=== PATIENT | female | born 1950 | race Caucasian/White ===

== ENCOUNTER 2019-06-10 10:48 | Outpatient (CLI) | payer MEDICARE, SELFPAY ==
--- NOTE | 2019-06-10 | EST_ITS ---
Patient Info Name: Wendi Goncalves Age: 69 years : 1950 Gender: Female Ht: 60 in Wt: 187 lbs BSA: 1.94 m2 Exam Date: 06/10/2019 11:39 AM Exam Location: [facility] Stress Patient Status: Outpatient Admit Date: 06/10/2019 Staff Ordering Physician: DannyTracey MD Attending Provider: DannyTracey MD Exercise Technologist: Darren Park, RDCS, RT Nurse: Eun Rodgers, ANP, ACNP-BC Exam Type: CA stress test treadmill Study Info A treadmill exercise stress test was performed. Summary 1. Reasonable exercise tolerance for age. 2. No typical angina but felt a midsternal rock pressing on her chest with breathing during stress test. 3. Normal ST segment response to stress. Protocol: [place] Stress ECG Details Stage: REST Duration (min): 4 min : 49 sec Speed (mph): 0.0 Grade (%): 0 HR (bpm): 81 SBP (mmHg): 134 DBP (mmHg): 85 METS: --- Stage: REST Duration (min): 18 min : 57 sec Speed (mph): 0.0 Grade (%): 0 HR (bpm): 80 SBP (mmHg): 134 DBP (mmHg): 85 METS: --- Stage: STAGE 1 Duration (min): 1 min : 0 sec Speed (mph): 1.7 Grade (%): 10 HR (bpm): 110 SBP (mmHg): 134 DBP (mmHg): 85 METS: --- Stage: STAGE 1 Duration (min): 2 min : 0 sec Speed (mph): 1.7 Grade (%): 10 HR (bpm): 119 SBP (mmHg): 134 DBP (mmHg): 85 METS: --- Stage: STAGE 1 Duration (min): 3 min : 0 sec Speed (mph): 1.7 Grade (%): 10 HR (bpm): 122 SBP (mmHg): 134 DBP (mmHg): 85 METS: --- Stage: STAGE 2 Duration (min): 1 min : 0 sec Speed (mph): 2.5 Grade (%): 12 HR (bpm): 131 SBP (mmHg): 134 DBP (mmHg): 85 METS: --- Stage: STAGE 2 Duration (min): 2 min : 0 sec Speed (mph): 2.5 Grade (%): 12 HR (bpm): 138 SBP (mmHg): 134 DBP (mmHg): 85 METS: --- Stage: STAGE 2 Duration (min): 2 min : 21 sec Speed (mph): 2.5 Grade (%): 12 HR (bpm): 139 SBP (mmHg): 134 DBP (mmHg): 85 METS: --- Stage: RECOVERY Duration (min): 0 min : 38 sec Speed (mph): 0.0 Grade (%): 0 HR (bpm): 134 SBP (mmHg): 134 DBP (mmHg): 85 METS: --- Stage: RECOVERY Duration (min): 1 min : 38 sec Speed (mph): 0.0 Grade (%): 0 HR (bpm): 113 SBP (mmHg): 134 DBP (mmHg): 85 METS: --- Stage: RECOVERY Duration (min): 2 min : 38 sec Speed (mph): 0.0 Grade (%): 0 HR (bpm): 99 SBP (mmHg): 171 DBP (mmHg): 86 METS: --- Stage: RECOVERY Duration (min): 3 min : 38 sec Speed (mph): 0.0 Grade (%): 0 HR (bpm): 103 SBP (mmHg): 167 DBP (mmHg): 83 METS: --- Stage: RECOVERY Duration (min): 4 min : 38 sec Speed (mph): 0.0 Grade (%): 0 HR (bpm): 96 SBP (mmHg): 167 DBP (mmHg): 83 METS: --- Stage: RECOVERY Duration (min): 5
== END 2019-06-10 10:49 | disposition home or self-care (01) ==
PROVIDERS: PCP Internal Medicine; Visit Provider Internal Medicine
DX: R07.9 Chest pain, unspecified (principal)
CPT/HCPCS: 93017

== ENCOUNTER 2020-11-23 01:08 | Day surgery (SDC) | payer MEDICARE, SELFPAY ==
[2020-11-12 15:35] VITALS: BMI 35.6
--- NOTE | 2020-11-22 13:29 | WPDANESEPPF ---
Anes - Initial Pre Proc Eval Procedure: Operation Date: 11/23/20 11:30 Proposed Procedures p Screening Colonoscopy - Cayetano Carlisle MD Date/Time: 11/22/20 13:29 Surgeon: Cayetano Carlisle MD Pre Op Diagnosis: family hx of colon ca Patient Data Age: 70 Gender: F Height: 1.52 m Weight: 82.7 kg Allergies Allergy/AdvReac Type Severity Reaction Status Date / Time nizatidine Allergy Intermediate hives Verified 11/23/20 10:41 ranitidine [From Zantac] Allergy Hives Verified 11/23/20 10:41 Home Medications Medication Instructions Recorded Confirmed Type isosorbide mononitrate 30 mg 30 mg PO DAILY 10/13/20 11/23/20 History tablet,extended release 24 hr lisinopril 20 1 tablet PO DAILY 10/13/20 11/23/20 History mg-hydrochlorothiazide 25 mg tablet meloxicam 15 mg tablet 15 mg PO DAILY 10/13/20 11/23/20 History metoprolol succinate 25 mg 25 mg PO DAILY 10/13/20 11/23/20 History tablet,extended release 24 hr rosuvastatin 5 mg tablet 5 mg PO DAILY 10/13/20 11/23/20 History Patient hx anesthesia problems: none Family hx anesthesia problems: none PMFSH Past Medical History Medical History (Updated 11/23/20 @ 11:27 by Jean Parker DO) Constipation Coronary artery disease 50-60% blockage, no stents GERD (gastroesophageal reflux disease) Hepatitis Hyperlipidemia Hypertension MING (obstructive sleep apnea) Osteoporosis Surgical History Surgical History (Updated 11/22/20 @ 13:29 by Jean Parker DO) History of hysterectomy Family History Family History (Updated 10/13/20 @ 15:16 by Gay Palmer CMA) Mother Carcinoma of colon Social History Social History (Updated 10/13/20 @ 15:16 by Gay Palmer CMA) Smoking status: Never smoker Alcohol intake: never Substance use: never Substance use type: does not use Living arrangements: with family Gender identity (if verbalized by the patient): Female Anes - Eval Final PreProcedure Day of Procedure 11/22/20 13:29 Patient weight: obese Heart: regular rate and rhythm Lungs: clear to auscultation and normal air movement Airway: Mallampati scale class III Neurological: alert and oriented Last oral intake: >/= 8 hours ASA classification: III Emergent: no Anesthetic plan: proceed Anesthesia type and monitoring: general GIVS and standard monitoring Informed Consent: The patient's anesthetic plan and its attendant risks and benefits were discussed with the patient/family/POA. Questions were solicited and answers provided to the satisfaction of the patient/family/POA.
[2020-11-23] MEDS: LACTATED RINGERS 1,000 ML 150 ML IV CONT (10:53)
[2020-11-23 10:54] VITALS: BP 139/62; PULSE 75; RESP 21; TEMP 35.7; O2SAT 97
--- NOTE | 2020-11-23 11:14 | WPDGICN ---
Assessment and Plan Assessment and plan (1) Family history of colon cancer in mother: Code(s): Z80.0 - Family history of malignant neoplasm of digestive organs Status: Acute Assessment and Plan: Patient's family history is significant her mother had colon cancer. Plan is for screening colonoscopy at this time. High-fiber diet is advised because of irregular bowel movements and a history of bright red blood per rectum on 1 occasion. Further recommendations will be given after endoscopy. GI Consult Note Consult date/time: 11/23/20 11:14 HPI: Wendi Goncalves is a 70 year old female Presents for screening colonoscopy. Family history is significant her mother had colon cancer. Patient reports her weight appetite bowel movements are normal. She did briefly a bright red blood per rectum after a hard stool. She denies any abdominal pain. Her bowel habits returned to normal. Plan to proceed with screening colonoscopy at this time. Review of Systems Review of Systems: All systems reviewed & are unremarkable except as noted in HPI and below PMFSH Past Medical History Medical History (Updated 11/22/20 @ 13:29 by Jean Parker DO) Constipation Coronary artery disease GERD (gastroesophageal reflux disease) Hepatitis Hyperlipidemia Hypertension MING (obstructive sleep apnea) Osteoporosis Surgical History Surgical History (Updated 11/22/20 @ 13:29 by Jean Parker DO) History of hysterectomy Family History Family History (Updated 10/13/20 @ 15:16 by Gay Palmer CMA) Mother Carcinoma of colon Social History Social History (Updated 10/13/20 @ 15:16 by Gay Palmer CMA) Smoking status: Never smoker Alcohol intake: never Substance use: never Substance use type: does not use Living arrangements: with family Gender identity (if verbalized by the patient): Female Meds Home Medications and Allergies Home Medications Medication Instructions Recorded Confirmed Type isosorbide mononitrate 30 mg 30 mg PO DAILY 10/13/20 11/23/20 History tablet,extended release 24 hr lisinopril 20 1 tablet PO DAILY 10/13/20 11/23/20 History mg-hydrochlorothiazide 25 mg tablet meloxicam 15 mg tablet 15 mg PO DAILY 10/13/20 11/23/20 History metoprolol succinate 25 mg 25 mg PO DAILY 10/13/20 11/23/20 History tablet,extended release 24 hr rosuvastatin 5 mg tablet 5 mg PO DAILY 10/13/20 11/23/20 History Allergies Allergy/AdvReac Type Severity Reaction Status Date / Time nizatidine Allergy Intermediate hives Verified 11/23/20 10:41 ranitidine [From Zantac] Allergy Hives Verified 11/23/20 10:41 Vital Signs Vital Signs - 24 hr 11/23/20 10:54 Temperature 96.3 F L Pulse Rate 75 Respiratory Rate 21 H Blood Pressure 139/62 Pulse Oximetry 97 Exam Narrative: Physical exam reveals patient to be alert. Vital signs are stable. Lungs are clear. Heart without murmur. bowel signs are present soft nontender with no hepatosplenomegaly. Digital external rectal exam is normal.
[2020-11-23 12:15] VITALS: BP 103/58; PULSE 76; RESP 23; O2SAT 95
[2020-11-23 12:25] VITALS: BP 113/60; PULSE 77; RESP 25; O2SAT 95
[2020-11-23 12:35] VITALS: BP 135/58; PULSE 71; RESP 25; O2SAT 95
== END 2020-11-23 12:55 | disposition home or self-care (01) ==
PROVIDERS: PCP Internal Medicine; Visit Provider Internal Medicine Gastroenterology
PROC: 0DJD8ZZ Inspection of Lower Intestinal Tract, Via Natural or Artificial Opening Endoscopic (ICD-10-PCS; CPT 45378; principal; 2020-11-23 11:30)
DX: K62.5 Hemorrhage of anus and rectum (principal); Z80.0 Family history of malignant neoplasm of digestive organs; K57.30 Diverticulosis of large intestine without perforation or abscess without bleeding; K64.8 Other hemorrhoids; I25.10 Atherosclerotic heart disease of native coronary artery without angina pectoris; K21.9 Gastro-esophageal reflux disease without esophagitis; K75.9 Inflammatory liver disease, unspecified; I10 Essential (primary) hypertension; M81.0 Age-related osteoporosis without current pathological fracture; G47.33 Obstructive sleep apnea (adult) (pediatric); E66.9 Obesity, unspecified; Z68.35 Body mass index [BMI] 35.0-35.9, adult
CPT/HCPCS: 45378; J2001; J2704; J7120

== ENCOUNTER 2022-08-04 13:25 | Outpatient (CLI) | payer MEDICARE, SELFPAY ==
--- NOTE | ~2022-08-04 | XR_ITS ---
EXAM: XR elbow RT min 3V DATE: 08/04/2022 13:45 HISTORY: INJURY OF RIGHT ELBOW . COMPARISON: None available. FINDINGS: Normal mineralization. No fracture or dislocation. No lytic or blastic lesion. Mild degene rative change in the elbow joint. Enthesopathy overlying the lateral epicondyle. No erosion or perios teal change. Soft tissues within normal limits. IMPRESSION: Lateral epicondylar enthesopathy, correlate for clinical findings of bilateral epicondyli tis. Reviewed, dictated and finalized at location K. IMPRESSION: Lateral epicondylar enthesopathy, correlate for clinical findings o f bilateral epicondylitis.
== END 2022-08-04 13:26 | disposition home or self-care (01) ==
PROVIDERS: PCP Internal Medicine; Visit Provider Internal Medicine
DX: M77.11 Lateral epicondylitis, right elbow (principal)
CPT/HCPCS: 73080

== ENCOUNTER 2024-02-11 13:07 | Outpatient (CLI) | payer MEDICARE, SELFPAY ==
--- NOTE | ~2024-02-11 | XR_ITS ---
XR hip RT min 2V Ordering provider: Tracey Delgado MD History: . PAIN IN R HIP . Comparison: None. FINDINGS: BONES: No acute fracture or dislocation. HIP JOINT SPACES: Mild osteoarthritic changes. PUBIC SYMPHYSIS: Normal. SOFT TISSUES: Normal. IMPRESSION: No acute osseous abnormality pelvis and right hip. Reviewed, dictated and finalized at location A. [facility] [employer]
== END 2024-02-11 13:08 | disposition home or self-care (01) ==
PROVIDERS: PCP Internal Medicine; Visit Provider Internal Medicine
DX: M25.551 Pain in right hip (principal)
CPT/HCPCS: 73502

== ENCOUNTER 2024-06-09 07:56 | Emergency (ER) | payer MEDICARE, SELFPAY ==
[2024-06-09] VITALS (26 sets, daily range): BP systolic 101–181; BP diastolic 34–93; PULSE 65–78; RESP 16–36; TEMP 36.4–36.7; O2SAT 90–97
--- NOTE | ~2024-06-09 | XR_ITS ---
EXAMINATION: XR chest 2V DATE: 06/09/2024 08:15 INDICATION: Chest pain. TECHNIQUE: Frontal and lateral views of the chest were obtained. COMPARISON: Chest single view 10/06/2011 FINDINGS: There is mild atelectasis in right mid and lower lung zones and left lower lung zone. No pl eural effusion or pneumothorax. The heart size is normal. IMPRESSION: 1. Mild atelectasis in right mid and lower lung zones and left lower lung zone. Reviewed, dictated and finalized at location B.
--- NOTE | 2024-06-09 07:57 | ECG_ITS ---
Test Date: 2024-06-09 08:01:35 Measurements Intervals [place] Rate: 78 P: 23 ME: 153 QRS: -14 QRSD: 86 T: 60 QT: 359 QTc: 410 Interpretive Statements SINUS RHYTHM NONSPECIFIC ST & T-WAVE ABNORMALITY No previous ECG available for comparison Electronically Signed On 06-09-2024 11:40:57 CDT by Deny Pedersen M.D.
--- OUTSIDE RECORDS SUMMARY | 2024-06-09 08:03 | XMS_ITS | Clinical Summary ---
Author Organization [facility] al Address [address] [place] [address] Care Team Providers Care Operations Team Leader Name Role Phone Gareth Diaz MD Unavailable [phone] Tracey Delgado MD Primary Care Provider [phone] Allergies Active Allergy Reactions Criticality Noted Date Comments Nizatidine Unknown 10/30/2018 Ranitidine Hives Medium 06/24/2019 Medications meloxicam (MOBIC) 15 mg tablet Take 1 tablet (15 mg total) by mouth daily 3 9 Active omega 7-qav-fhw-fish oil 300-1,000 mg capsule Active aspirin 81 mg enteric coated tablet Take 1 tablet (81 mg total) by mouth daily Active cholecalciferol (VITAMIN D-3) 5,000 unit capsule Take 1 capsule (5,000 Units total) by mouth 3 (three) times a week Active metoprolol XL (TOPROL-XL) 25 mg extended release tablet Activ e coenzyme Q10 200 mg capsule Activ e sertraline (ZOLOFT) 25 mg tablet Take 2 tablets (50 mg total) by mouth daily 3 Active rosuvastatin (CRESTOR) 5 mg tablet Take 1 tablet (5 mg total) by mouth daily 100 tablet 2 3 Active B6/folic/B12/co ffee/phosphatid (NEURIVA PLUS BRAIN PERFORMANCE ORAL) 4 Active isosorbide mononitrate ER (IMDUR) 30 mg 24 hr tablet TAKE 1 TABLET BY MOUTH DAILY 100 tablet 2 5 Active rOPINIRole (REQUIP) 0.5 mg tabletIndicatio ns:Treatment-em ergent central sleep apnea,PLMD (periodic limb movement disorder) TAKE 1 TABLET BY MOUTH EVERY NIGHT 100 tablet 2 5 Active rOPINIRole (REQUIP) 0.5 mg tabletIndicatio ns:Treatment-em ergent central sleep apnea,PLMD (periodic limb movement disorder) Take 1 tablet (0.5 mg total) by mouth nightly 90 tablet 3 4 025 Discontinued Active Problems Problem Noted Date Diagnosed Date Shortness of breath 04/09/2023 Lower extremity edema 09/29/2022 Essential hypertension, benign 10/06/2021 Dyspnea on exertion 10/06/2021 Chest pressure 10/06/2021 Mixed hyperlipidemia 01/21/2021 Treatment-emergent central sleep apnea Assessment & Plan (11/01/2023 1:54 PM CDT): Due to continued symptoms, the patient will continue auto SV BiPAP therapy. Ordered masks. DME [employer] Assessment & Plan (10/30/2022 3:09 PM CDT): Patient continue to wear her auto SV BiPAP at her current settings. The patient's DME is [employer]. Assessment & Plan (10/04/2021 2:15 PM CDT): The patient continues to benefit from the auto SV BiPAP unit. Her DME supplier is [employer]. She will follow-up with me in 1 year. Assessment & Plan (06/09/2021 2:46 PM FIRE PREVENTION OFFICER): The patient states that she did not use the so clean machine. The patient was advised to inspect her auto SV BiPAP for any dark particles in her hose or water tank. If none is visualize the patient was advised to resume the use of her auto SV BiPAP. The patient was advised that the slurred speech and memory issues could be related to a TIA or stroke symptoms. The patient advised if these symptoms return that she needs to proceed to the emergency room immediately. The patient verbalized understanding. Assessment & Plan (06/08/2020 2:40 PM FIRE PREVENTION OFFICER): Due to the patient's elevated AHI, snoring, and daytime fatigue, the auto SV BiPAP settings will be changed with a max pressure 25 a minimum EPAP of 15, max EPAP of 21, minimum pressure support 0, max pressure support of 10 cm water pressure. The breath rate will remain on auto. The patient was provided an order for a new mask. The DME company is [employer]. The patient is benefitting from auto SV BiPAP therapy. PLMD (periodic limb movement disorder) Assessment & Plan (11/01/2023 1:53 PM CDT): Due to the symptoms, I have ordered Requip 0.5 mg nightly. Assessment & Plan (10/30/2022 3:09 PM CDT): The patient denies that her limbs are moving at night when she sleeps. Assessment & Plan (10/04/2021 2:16 PM CDT): She is not aware that her limbs are moving at night. Assessment & Plan (06/09/2021 2:46 PM FIRE PREVENTION OFFICER): Patient denies that her limbs are moving at night when she sleeps. Assessment & Plan (06/08/2020 2:41 PM FIRE PREVENTION OFFICER): The patient states her periodic limb movement disorder is currently asymptomatic. The patient was offered labs to evaluate iron and ferritin levels, the patient would like to wait until she starts having symptoms before obtaining lab work. Coronary artery disease invo lving [place] coronary artery of [place] heart without angina pectoris 07/11/2019 Essential hypertension 06/24/2019 Obesity (BMI 35.0-39.9 without comorbidity) 06/01 Abnormal EKG 06/24/2019 Abnormal stress test 06/24/2019 Resolved Problems Problem Noted Date Diagnosed Date Resolved Date Dyslipidemia 07/11/2019 01/21/2021 Snoring 06/24/2019 10/04/2021 Encounters Date Type Department Care Team Description 04/17/2024 Orders Only [facility] Medical [facility] Cardiology [address] [place] [address] Kathi Quijano MD 04/16/2024 2:00 PM FIRE PREVENTION OFFICER Office Visit [facility] Medical [facility] Cardiology [address] [place] [id number] Gareth Diaz MD Coronary artery disease involving [place] coronary artery of [place] heart without angina pectoris (Primary Dx); Essential hypertension; Mixed hyperlipidemia; Lower extremity edema; Shortness of breath 04/15/2024 10:48 AM FIRE PREVENTION OFFICER - 04/15/2024 11:59 PM FIRE PREVENTION OFFICER Hospital Encounter [facility] Breast Imaging [facility] [place] [address] Screening mammogram, encounter for Discharge Disposition: Discharge to home or self care from Last 3 Months Immunizations Immunization Administration Dates Next Due Influenza, Quadrivalent, Spl it, Preservative Free, Intramuscular 01/16/2019 Pneumococcal Polysaccharide PPV23 11/07/2014 Surgical History Surgery Date Site/Laterality Comments VT TOTAL ABDOMINAL HYSTERECT W/WO RMVL TUBE OVARY Hysterectomy - (Added by TW Conv) HYSTERECTOMY COLONOSCOPY 04/02/2015 - 04/01/2016 CARDIAC CATHETERIZATION CATARACT EXTRACTION left eye first Medical History Medical History Date Comments Personal history of other di seases of the circulatory system History of hypertension - (A dded by TW Conv) Disease of intestine Bowel troub le - (Added by TW Conv) Personal history of other di seases of the musculoskeletal system and connective tissue Personal history of arthriti s - (Added by TW Conv) Personal history of other sp ecified conditions History of jaundice - (Added by TW Conv) GERD (gastroesophageal reflux disease) Hepatitis 1961 IBS (irritable bowel syndrome) Diverticulitis Hypertension Hyperlipidemia Coronary artery disease Family History Medical History Relation Name Comments Breast cancer Maternal Grandmother Family history of malignant neoplasm of breast - (Added by TW Conv) Leukemia Maternal Grandmother Family history of leukemia - (Added by TW Conv) Colon cancer Mother Family history of malignant neoplasm of colon - (Added by TW Conv) Hypertension Mother Family history of hypertension - (Added by TW Conv) Relation Name Status Comments Maternal Grandmother Mother Social History Tobacco Use Types Packs/Day Years Used Date Smoking Tobacco: Never Smokeless Tobacco: Never Tobacco Cessation:Counseling Given: Not Answered Alcohol Use Standard Drinks/Week Comments Not Currently 0 (1 standard drink = 0.6 oz pur e alcohol) AUDIT-C Answer Date Recorded Q1: How often do you have a drink containing alc ohol? Never 06/09/2021 Average Number of Drinks Not on file 022 Q3: How often do you have si x or more drinks on one occasion? Never 06/09/2021 Comments No Sex and Gender Information Value Date Recorded Sex Assigned at Not on file Legal Sex Female 5:57 AM FIRE PREVENTION OFFICER Gender Identity Female 01/09/2020 9:13 PM CDT Sexual Orientation Not on file Obstetrics History Para Term AB IAB SAB Ectopic Multiple Livin g Live Births 2 2 2 Date Outcome GA Total Labor Labor/2nd/3rd Weight Sex Type Anes PTL Theodora A1 A5 Name Clin Term Term Last Filed Vital Signs Vital Sign Reading Time Taken Comments Blood Pressure 132/74 04/16/2024 2:51 PM FIRE PREVENTION OFFICER Pulse 68 04/16/2024 2:51 PM FIRE PREVENTION OFFICER Temperature 36.6 C (97.8 F) 11/01/2023 1:35 PM CDT Respiratory Rate 18 11/01/2023 1:35 PM CDT Oxygen Saturation 97% 11/01/2023 1:35 PM CDT Inhaled Oxygen Concentration - - Weight 84.8 kg (186 lb 14.4 oz) 04/16/2024 2:51 PM FIRE PREVENTION OFFICER Height 152.4 cm (5') 04/16/2024 2:51 PM FIRE PREVENTION OFFICER Body Mass Index 36.5 04/16/2024 2:51 PM FIRE PREVENTION OFFICER Plan of Treatment Health Maintenance Due Date Last Done Comments Colon Cancer Screening-Colonoscopy 1950 Depression Screening 1950 Fall Risk Assessment 1950 Hepatitis C Screening 1950 DTaP/Tdap/Td Vaccine (1 - Tdap) 1960 Hepatitis B Screening 1967 Zoster Vaccine (1 of 2) 1999 Well Visit 65+ 2014 Pneumococcal vaccine 65+ (2 of 2 - PCV) 11/08/2015 11/07/2014 Osteoporosis Screening-Bone Density Scan 03/22/2025 03/22/2023, 12/28/2020, 08/29/2013 Influenza Vaccine Completed 01/13/2024, , 01/08/2022, Additional history exists Breast Cancer Screening-Mammogram Discontinued 04/15/2024, 03/22/2023, 12/28/2020, Additional history exists Procedures Procedure Name Priority Date/Time Associated Diagnosis Comments SCREENING MAMMOGRAM BILATERAL W HOWARD Schedule Routine, Read Routine (OP Routine) 04/15/2024 11:03 AM FIRE PREVENTION OFFICER Screening mammogram, encounter for DEXA AXIAL SKELETON BONE DENSITY 1 OR MORE SITES Schedule Routine, Read Routine (OP Routine) 03/22/2023 1:32 PM FIRE PREVENTION OFFICER Asymptomatic menopausal state from Last 3 Months or Most Recently Relevant to Health Maintenance Results * Screening Mammogram Bilateral W Howard (04/15/2024 11:03 AM FIRE PREVENTION OFFICER) Anatomical Region Laterality Modality Breast Bilateral Mammography Impressions 04/15/2024 11:27 AM FIRE PREVENTION OFFICER BI-RADS ATLAS category (overall): 2 - Benign There is no mammographic evidence of malignancy. A 1 year screening mammogram is recommended. The patient has been or will be contacted. We recommend annual screening mammography for women at average risk of breast cancer beginning at age 40, based on guidelines of the [employer] (ACR Practice Parameter for the Performance of Screening and Diagnostic Mammography) and [employer]. For women with and elevated risk of breast cancer, please refer to the ACR Practice Parameter for specific screening recommendations. The patient will be entered into a reminder system with a target due date of 1 year for her next screening exam. Narrative 04/15/2024 11:27 AM FIRE PREVENTION OFFICER Screening Mammogram Bilateral W Howard: 04/15/24 The study was acquired using full field digital technology and interpreted from soft copy. 2D digital mammographic views, as well as 3D digital tomosynthesis were performed in the CC and MLO projections. This study was resulted using Computer-Aided Detection (CAD). CLINICAL: Screening mammogram, encounter for. No relevant medical history has been documented for this patient. History of breast cancer in Maternal Grandmother. COMPARISONS: 03/22/2023 Screening Mammogram Bilateral W Howard 12/28/2020 Screening Mammogram Bilateral W Howard 07/09/2017 Breast Imaging Screening Outside Reference BREAST TISSUE: There are scattered areas of fibroglandular density. FINDINGS: There are benign scattered calcifications in both breasts. There is no new suspicious finding in either breast on mammogram. 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 LEFT HIP: Total BMD is 0.893 g/cm2 T-score is -0.4 This is decrease in comparison to prior exam which is statistically significant. Femoral neck BMD is 0.687 g/cm2 T-score is -1.5 FRAX: 10 year risk for a major osteoporotic fracture is 9.6 %, 10 year risk for a hip fracture is 1.6 % IMPRESSION: Low Bone Mass. REFERENCE: Bone mineral density: Normal (T-score above or = -1.0) Low bone mass (T-score between -1.0 and -2.5) replaces the previously used term osteopenia Osteoporosis (T-score = or below -2.5) Medical evaluation for secondary causes of low bone mineral density may be appropriate. FRAX is a World Health Organization validated fracture risk assessment tool that calculates a person's 10 year probability of a major osteoporosis related fracture and hip fracture. According to the National Osteoporosis Foundation guidelines, postmenopausal women and men age 50 or older with low bone mass and a 10 year probability of a major osteoporosis related fracture = or greater than 20% or a 10 year probability of a hip fracture = or greater than 3% should be considered for treatment. For further information, including treatment recommendations, please refer to the 2019 ISCD Official Positions (http://www.iscd.org) and the NOF's Clinician's Guide to Prevention and Treatment of Osteoporosis (http://www.nof.org/professionals/clinical-guidelines) THIS IS AN ELECTRONICALLY VERIFIED FINAL REPORT 03/23/2023 6:16 PM - Electronically signed by Luis Fernando Maloney M.D. 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 LEFT HIP: Total BMD is 0.893 g/cm2 T-score is -0.4 This is decrease in comparison to prior exam which is statistically significant. Femoral neck BMD is 0.687 g/cm2 T-score is -1.5 FRAX: 10 year risk for a major osteoporotic fracture is 9.6 %, 10 year risk fora hip fracture is 1.6 % IMPRESSION: Low Bone Mass. REFERENCE: Bone mineral density: Normal (T-score above or = -1.0) Low bone mass (T-score between -1.0 and -2.5) replaces thepreviously used term osteopenia Osteoporosis (T-score = or below -2.5) Medical evaluation for secondary causes of low bone mineral density may be appropriate. FRAX is a World Health Organization validated fracture risk assessmenttool that calculates a person's 10 year probability of a major osteoporosisrelated fracture and hip fracture. According to the National OsteoporosisFoundation guidelines, postmenopausal women and men age 50 or older with low bonemass and a 10 year probability of a major osteoporosis related fracture = or greater than 20% or a 10 year probability of a hip fracture = or greaterthan 3% should be considered for treatment. For further information, including treatment recommendations, please referto the 2019 ISCD Official Positions (http://www.iscd.org) and the NOF's Clinician's Guide to Prevention and Treatment of Osteoporosis (http://www.nof.org/professionals/clinical-guidelines) THIS IS AN ELECTRONICALLY VERIFIED FINAL REPORT 03/23/2023 6:16 PM - Electronically signed by Luis Fernando Maloney M.D. MF: [email or web address] Report ID: [id number] Reading Location: [place] [address] Tracey Delgado MD IMG DXA PROCEDURES Final R esult from Last 3 Months or Most Recently Relevant to Health Maintenance Insurance [facility] MEDICARE MEDICARE SOLUTIONS Advance Directives For more information, please contact: [phone] * Full Code (Latest Code Status on File) Date Activated Date Inactivated Comments 11/05/2018 8:20 AM 11/05/2018 2:24 PM Care Teams Operations Team Leader Relationship Specialty Start Date End Date Tracey Delgado MD [address] [facility] [place] [address] PCP - General Internal Medicine 01/16/20 Gareth Diaz MD [address] [place] [address] Voice And Data Technician Cardiology 06/30/19
--- OUTSIDE RECORDS SUMMARY | 2024-06-09 08:03 | XMS_ITS | Clinical Summary ---
Author Organization [facility] Address [facility] [place] [address] Care Team Providers Care Certified Fire Investigator Name Role Phone Tracey Delgado MD Primary Care Provider [phone] Allergies Active Allergy Reactions Criticality Noted Date Comments Nizatidine Hives 01/17/2021 Ranitidine Hives 01/17/2021 Medications isosorbide mononitrate ER 30 MG 24 hr tablet Take 30 mg by mouth daily. Active meloxicam 15 MG tablet Take 15 mg by mouth daily. Active metoprolol succinate ER 25 MG 24 hr tablet Take 25 mg by mouth daily. Active rosuvastatin 5 MG tablet Take 5 mg by mouth nightly at bedtime. Active aspirin EC (ASPIRIN EC) 81 MG tablet Take 81 mg by mouth daily. Active lisinopril-hydro CHLOROthiazide 20-12.5 MG tablet Take 1 tablet by mouth daily. Takes lisinopril 20/ HCTZ 25mg tablet Active Social History Tobacco Use Types Packs/Day Years Used Date Smoking Tobacco: Former Smokeless Tobacco: Never Alcohol Use Standard Drinks/Week Comments Never 0 (1 standard drink = 0.6 oz pur e alcohol) Comments No Sex and Gender Information Value Date Recorded Sex Assigned at Not on file Legal Sex Female 1:37 AM CDT Gender Identity Not on file Sexual Orientation Not on file Last Filed Vital Signs Vital Sign Reading Time Taken Comments Blood Pressure 125/65 01/24/2021 10:57 AM CDT Pulse 72 01/24/2021 10:57 AM CDT Temperature 36.2 C (97.1 F) 01/24/2021 9:47 AM CDT Respiratory Rate 16 01/24/2021 10:57 AM CDT Oxygen Saturation 99% 01/24/2021 10:57 AM CDT Inhaled Oxygen Concentration - - Weight 83.5 kg (184 lb) 01/17/2021 3:46 PM CDT Height 152.4 cm (5') 01/17/2021 3:46 PM CDT Body Mass Index 35.94 01/17/2021 3:46 PM CDT Plan of Treatment Health Maintenance Due Date Last Done Comments Colorectal Cancer Screening Colonoscopy (10 Years) 1949 Hepatitis C 1967 DTaP, Tdap and Td Vaccines ( 1 - Tdap) 1968 Zoster Vaccines (1 of 2) 1999 Annual Medicare Wellness Visit 2014 Dexa Scan (General) 2014 Pneumococcal Vaccine: 65+ Years (2 of 2 - PPSV23 or PCV20) 03/17/2021 03/17/2020 COVID-19 Vaccine (3 - 2023-2 5 season) 2023 06/21/2020, 05/19/2020 Influenza Adult (#1) 2024 01/10/2021 RSV Immunization or 60+ Years (1 - 1-dose 75+ series) 2024 Meningococcal B Vaccine Aged Out No l onger eligible based on patient's age to complete this topic Meningococcal Vaccine Aged Out No tyrone jer eligible based on patient's age to complete this topic RSV Immunizations Under 20 Months Aged Out No longer eligible b ased on patient's age to complete this topic Medical Devices Implanted Type Area Tour Manager Device Identifier Shelf Expiration Date Model / Serial / Lot Iol [employer] [id number] - [id number] Implanted:Qty: 1 on 01/24/2021 by Abiel Bello MD at [facility] Lens Left: Eye [employer] 01/13/2024 [id number] / [id number] / Insurance [facility] Member Subscriber Plan / Payer (Ef fective 2019-Present) Name:Wendi Goncalves Relation to Subscriber:Self Name:Wendi Goncalves Payer ID:[id number] (NAIC) Type:Not on file Address: [place] [id number] Care Teams Certified Fire Investigator Relationship Specialty Start Date End Date Tracey Delgado MD [address] [place] [address] PCP - General INTERNAL MEDICINE 03/03/20
--- OUTSIDE RECORDS SUMMARY | 2024-06-09 08:03 | XMS_ITS | Patient Health Record ---
Author Organization [facility] Address [address] [place] [address] Care Team Providers Care Rfp Writer Name Role Phone Linus Delgadosha Primary Care Provider Bronwyn Patel Unavailable [phone] Allergies Allergen (clinical drug ingredient) Drug/Non Drug Allergy documented on EMR Reaction Allergy Type Onset Date Status lisinopril Lisinopril Unknown Drug Allergy Activ e metoprolol Metoprolol other reaction Drug Allergy Active nizatidine Nizatidine hives Drug Allergy Activ e ranitidine raNITIdine hives Drug Allergy Activ e Results Component Value Reference Range Notes -Complement C4, Serum Reviewed date:03/13/2024 12:50:43 PM Interpretation:Normal Performing Lab:[facility], [address] [place] [id number], Phone - [phone], Director - Angella Notes/Report: Complement C4, Serum 25 12-38 mg/dL -CBC With Differential/Plate let Reviewed date:03/13/2024 12:50:26 PM Interpretation:Normal Performing Lab:[facility], [address], [place] [id number], Phone - [phone], Director - Angella Notes/Report: WBC 9.2 3.4-10.8 x10E3/uL Effective March 03, 2024 profile [id number] WBC will be made non-orderable as a stand-alone order code. RBC 3.97 3.77-5.28 x10E6/uL Hemoglobin 12.8 11.1-15.9 g/dL Hematocrit 38.6 34.0-46.6 % MCV 97 79-97 fL MCH 32.2 26.6-33.0 pg MCHC 33.2 31.5-35.7 g/dL RDW 12.1 11.7-15.4 % Platelets 217 150-450 x10E3/uL Neutrophils 68 Not Estab. % Lymphs 21 Not Estab. % Monocytes 8 Not Estab. % Eos 3 Not Estab. % Basos 0 Not Estab. % Neutrophils (Absolute) 6.2 1.4-7.0 x10E3/uL Lymphs (Absolute) 2.0 0.7-3.1 x10E3/uL Monocytes(Absolute) 0.8 0.1-0.9 x10E3/uL Eos (Absolute) 0.2 0.0-0.4 x10E3/uL Baso (Absolute) 0.0 0.0-0.2 x10E3/uL Immature Granulocytes 0 Not Estab. % Immature Grans (Abs) 0.0 0.0-0.1 x10E3/uL -Complement C1q, Quantitativ e Reviewed date:03/13/2024 12:49:55 PM Interpretation:Normal Performing Lab:[facility] [address] [id number], Phone - [phone], Director - Norberto Notes/Report: Complement C1q, Quantitative 12.7 10.3-20.5 mg /dL Reason For Referral No Information Medications Medication SIG (Take, Route, Frequency, Duration) Notes Start Date End Date Status rOPINIRole HCl 0.5 MG 1616.5 tab(s) Oral ly Once a day Active Meloxicam 15 MG 54 tab(s) Orally Onc e a day Active Isosorbide Mononitrate 20 MG 20.25 tab(s ) Orally Twice a day Active EPINEPHrine 0.3 MG/0.3ML as directed Inj ection as needed for 30 days 02/21/2024 Active Neurin-SL 600-600 MCG 1 tablet under the tongue and allow to dissolve Sublingual Once a day memory 02/20/2024 Active Aspirin 81 MG 10 tab(s) Orally Onc e a day Active Sertraline HCl 50 MG 16.25 tab(s) Orally Once a day Active VitaMelts Vitamin C 60 MG Orally Active Chlorthalidone 25 MG Orally Active Putnam 3 1000 MG 0.25 tab(s) Orally T hree times a day Active Multi Vitamin - 1 tablet Orally Once a day 02/20/2024 Active Biotin 5 MG 161.75 tab(s) Orally Once a day Active Problems Problem Type SNOMED Code ICD Code Onset Dates Problem Status W/U Status Risk Notes Problem Chronic rhinitis (34586554) Chronic rhinitis (J31.0) Active confirmed Problem Allergy status to other drugs, medicaments and biological substances (Z88.8) Active confirmed Vital Signs Oximetry 95 % 02/20/2024 Blood pressure diastolic 79 mm Hg 02/20/2024 Height 60 in 02/20/2024 Blood pressure systolic 152 mm Hg 02/20/2024 Weight 178.2 lbs 02/20/2024 BMI 34.8 kg/m2 02/20/2024 Encounters Encounter Location Date Provider Diagnosis [facility] [address] [place] [address] 02/20/2024 Bronwyn Nicholas Chronic rhinitis J31 .0 ; Angioneurotic edema, initial encounter T78.3XXA and Allergy status to other drugs, medicaments and biological substances Z88.8 [facility] [address] [place] [address] 03/13/2024 Bronwyn Nicholas Assessments Encounter Date Diagnosis (ICD Code) Assessment Notes Treatment Notes Treatment Clinical Notes Section Notes 02/20/2024 Angioneurotic edema, initial encounter (ICD-10 - T78.3XXA) History is not consistent with a drug allergy since she was taking metoprolol for over 2 years prior to developing angioedema. We discussed that skin testing does not exist for metoprolol but may resume medication since history is not consistent with a drug allergy. Recommend continuing to avoid CITLALY inhibitors given angioedema, but may resume HCTZ, metoprolol and ARBs can be used if needed. Unclear cause for angioedema and labs ordered for further evaluation. We discussed proper use of EpiPen. A copy of this consultation report was sent to the requesting physician. 02/20/2024 Chronic rhinitis (ICD-10 - J31.0) consider future skin testing if needed 02/20/2024 Allergy status to other drugs, medicaments and biological substances (ICD-10 - Z88.8) recommend avoiding CITLALY inhibitors but may resume all other blood pressure medications. 02/20/2024 Other Plan Of Treatment No Information Insurance Providers Payer Name Payer Address Payer Phone Subscriber Number Group Number Insured Name Patient Relationship to Insured Coverage Start Date Coverage End Date [facility] [employer] [address] [address] [place] [address] [id number] Wendi Goncalves Self - patient is the insured 4 Medical (General) History Medical History History ICD Code Coronary artery disease Surgical History Surgery Date(Month/Year) hysterectomy 1988
--- OUTSIDE RECORDS SUMMARY | 2024-06-09 08:03 | XMS_ITS ---
Author Organization [facility] Address [address] [place] [address] Care Team Providers Care [place] Name Role Phone Tracey Delgado Primary Care Provider Bronwyn Patel Unavailable [phone] REASON FOR VISIT labs Encounters Encounter Location Date Provider Diagnosis [facility] [address] [place] [address] 03/13/2024 Bronwyn Nicholas Plan Of Treatment No Information Progress Notes * Wendi SANDYDOB:1950 (73 yo F)Acc No.[id number]:03/13/2024 Patient: Wendi BLANC :1950 A ge:73 Y S ex:Female Address:[address], [place], [address] * true * Date: Generated for Printi ng/Fajasong/eTransmitting on: 0 06/09/2024 08:02 AM CDT
--- OUTSIDE RECORDS SUMMARY | 2024-06-09 08:03 | XMS_ITS | Referral Summary ---
Author Organization [facility] Address [address] [place] [address] Care Team Providers Care Mobile Service Rv Technician Name Role Phone Gareth Diaz MD Unavailable [phone] Tracey Delgado MD Primary Care Provider [phone] Encounters Date Type Department Care Team Description 04/17/2024 Orders Only [facility] Cardiology [address] [place] [address] [address] ProviderKathi MD 04/16/2024 2:00 PM FORMAL WAITER/WAITRESS Office Visit [facility] Cardiology [facility] [place] [address] Gareth Diaz MD Coronary artery disease involving [place] coronary artery of [place] heart without angina pectoris (Primary Dx); Essential hypertension; Mixed hyperlipidemia; Lower extremity edema; Shortness of breath 04/15/2024 10:48 AM FORMAL WAITER/WAITRESS - 04/15/2024 11:59 PM FORMAL WAITER/WAITRESS Hospital Encounter [facility] Breast Imaging [address] [place] [address] Screening mammogram, encounter for Discharge Disposition: Discharge to home or self care from Last 3 Months Allergies Active Allergy Reactions Criticality Noted Date Comments Nizatidine Unknown 10/30/2018 Ranitidine Hives Medium 06/24/2019 Medications meloxicam (MOBIC) 15 mg tablet Take 1 tablet (15 mg total) by mouth daily 3 9 Active omega 0-bbo-eiy-fish oil 300-1,000 mg capsule Active aspirin 81 [...] Mixed hyperlipidemia 01/21/2021 Treatment-emergent central sleep apnea 1 Assessment & Plan (11/01/2023 1:54 PM CDT): Due to continued symptoms, the patient will continue auto SV BiPAP therapy. Ordered masks. DME [employer] Assessment & Plan (10/30/2022 3:09 PM CDT): Patient continue to wear her auto SV BiPAP at her current settings. The patient's DME is [email or web address]. Assessment & Plan (10/04/2021 2:15 PM CDT): The patient continues to benefit from the auto SV BiPAP unit. Her DME supplier is [employer]. She will follow-up with me in 1 year. Assessment & Plan (06/09/2021 2:46 PM FORMAL WAITER/WAITRESS): The patient states that she did not [...] understanding. Assessment & Plan (06/08/2020 2:40 PM FORMAL WAITER/WAITRESS): Due to the patient's elevated AHI, snoring, [...] a new mask. The DME company is [employer]. The patient is benefitting from auto SV [...] night. Assessment & Plan (06/09/2021 2:46 PM FORMAL WAITER/WAITRESS): Patient denies that her limbs are moving at night when she sleeps. Assessment & Plan (06/08/2020 2:41 PM FORMAL WAITER/WAITRESS): The patient states her periodic limb movement disorder is currently asymptomatic. The patient was offered labs to evaluate iron and ferritin levels, the patient would like to wait until she starts having symptoms before obtaining lab work. Coronary artery disease invo [place]ving [place] coronary artery of [place] heart without angina pectoris 07/11/2019 Essential hypertension 06/24/2019 Obesity (BMI 35.0-39.9 without comorbidity) 06/01 Abnormal EKG 06/24/2019 Abnormal stress test 06/24/2019 Resolved Problems Problem Noted Date Diagnosed Date Resolved Date Dyslipidemia 07/11/2019 01/21/2021 Snoring 06/24/2019 10/04/2021 Immunizations Immunization Administration Dates Next Due Influenza, Quadrivalent, Spl it, Preservative Free, Intramuscular 01/16/2019 Pneumococcal Polysaccharide PPV23 11/07/2014 Social History Tobacco Use Types Packs/Day Years [...] on file Legal Sex Female 5:57 AM FORMAL WAITER/WAITRESS Gender Identity Female 01/09/2020 9:13 PM CDT Sexual Orientation Not on file Last Filed Vital Signs Vital Sign Reading Time Taken Comments Blood Pressure 132/74 04/16/2024 2:51 PM FORMAL WAITER/WAITRESS Pulse 68 04/16/2024 2:51 PM FORMAL WAITER/WAITRESS Temperature 36.6 C (97.8 F) 11/01/2023 1:35 PM CDT Respiratory Rate 18 11/01/2023 1:35 PM CDT Oxygen Saturation 97% 11/01/2023 1:35 PM CDT Inhaled Oxygen Concentration - - Weight 84.8 kg (186 lb 14.4 oz) 04/16/2024 2:51 PM FORMAL WAITER/WAITRESS Height 152.4 cm (5') 04/16/2024 2:51 PM FORMAL WAITER/WAITRESS Body Mass Index 36.5 04/16/2024 2:51 PM FORMAL WAITER/WAITRESS Plan of Treatment Not on file Procedures Procedure Name Priority Date/Time Associated Diagnosis Comments SCREENING MAMMOGRAM BILATERAL W HOWARD Schedule Routine, Read Routine (OP Routine) 04/15/2024 11:03 AM FORMAL WAITER/WAITRESS Screening mammogram, encounter for DEXA AXIAL SKELETON BONE DENSITY 1 OR MORE SITES Schedule Routine, Read Routine (OP Routine) 03/22/2023 1:32 PM FORMAL WAITER/WAITRESS Asymptomatic menopausal state from Last 3 Months or Most Recently Relevant to Health Maintenance Results * Screening Mammogram Bilateral W Howard (04/15/2024 11:03 AM FORMAL WAITER/WAITRESS) Anatomical Region Laterality Modality Breast Bilateral Mammography Impressions 04/15/2024 11:27 AM FORMAL WAITER/WAITRESS BI-RADS ATLAS category (overall): 2 - Benign There is no mammographic evidence of malignancy. A 1 year screening mammogram is recommended. The patient has been or will be contacted. We recommend annual screening mammography for women at average risk of breast cancer beginning at age 40, based on guidelines of the [employer] [place] [employer] (ACR Practice Parameter for the Performance of Screening and Diagnostic Mammography) and [place] [employer]. For women with and elevated risk of breast cancer, please refer to the ACR Practice Parameter for specific screening recommendations. The patient will be entered into a reminder system with a target due date of 1 year for her next screening exam. Narrative 04/15/2024 11:27 AM FORMAL WAITER/WAITRESS Screening Mammogram Bilateral W Howard: 04/15/24 The [...] 1 or 2 Site (03/22/2023 1:32 PM FORMAL WAITER/WAITRESS) Anatomical Region Laterality Modality Body N/A Mammography 03/23/2023 6:15 PM FORMAL WAITER/WAITRESS Narrative 03/23/2023 6:16 PM FORMAL WAITER/WAITRESS EXAM DESCRIPTION: DEXA AXIAL SKELETON BONE DENSITY 1 OR MORE SITES REASON FOR STUDY: 72 y/o year old F with given history of: Z78.0 Postmenopausal Support Services Rep/Model: [employer] (S/N [id number]) CLINICAL INFORMATION: Current height: 59 inches Maximum [...] Fernando Maloney M.D. MF: VICKIE Report ID: [id number] Reading Location: [id number] Procedure Note Luis Fernando Maloney MD - 03/23/2023 EXAM DESCRIPTION: DEXA AXIAL SKELETON BONE DENSITY 1 OR MORE SITES REASON FOR STUDY: 72 y/o year old F with given history of: Z78.0 Postmenopausal Support Services Rep/Model: [employer] (S/N [id number]) CLINICAL INFORMATION: Current height: 59 inches Maximum [...] Fernando Maloney M.D. MF: VICKIE Report ID: [id number] Reading Location: [place] [address] Tracey Delgado MD IMG DXA PROCEDURES Final R esult from Last 3 Months or Most Recently Relevant to Health Maintenance Insurance [facility] MEDICARE MEDICARE SOLUTIONS Advance Directives For more information, please contact: [phone] * Full Code (Latest Code Status on File) Date Activated Date Inactivated Comments 11/05/2018 8:20 AM 11/05/2018 2:24 PM Care Teams Mobile Service Rv Technician Relationship Specialty Start Date End Date Tracey Delgado MD [address] [place] [address] PCP - General Internal Medicine 01/16/20 Gareth Diaz MD [address] [place] [address] Storage Wharfage Clerk Cardiology 06/30/19
--- OUTSIDE RECORDS SUMMARY | 2024-06-09 08:03 | XMS_ITS ---
Author Organization [facility] Address [address] [place] [address] Care Team Providers [employer] Name Role Phone Linus Delgadosha Primary Care Provider Bronwyn Patel Unavailable [phone] Allergies Allergen (clinical drug ingredient) Drug/Non Drug Allergy documented on EMR Reaction Allergy Type Onset Date Status lisinopril Lisinopril Unknown Drug Allergy Activ e metoprolol Metoprolol other reaction Drug Allergy Active nizatidine Nizatidine hives Drug Allergy Activ e ranitidine raNITIdine hives Drug Allergy Activ e Results Component Value Reference Range Notes -Complement C4, Serum Reviewed date:03/13/2024 12:50:43 PM Interpretation:Normal Performing Lab:[facility] [address] [id number], Phone - [phone], Director - Angella Notes/Report: Complement C4, Serum 25 12-38 mg/dL -CBC With Differential/Plate let Reviewed date:03/13/2024 12:50:26 PM Interpretation:Normal Performing Lab:[facility] [place], [address] [place] [id number], Phone - [phone], Director - Angella Notes/Report: WBC 9.2 3.4-10.8 x10E3/uL Effective March 03, 2024 profile [id number] WBC will be made non-orderable as a [...] Reviewed date:03/13/2024 12:49:55 PM Interpretation:Normal Performing Lab:[facility], [address] [place] [id number], Phone - [phone], Director - Norberto Notes/Report: Complement C1q, Quantitative 12.7 10.3-20.5 mg /dL REASON FOR VISIT Drug allergy Medications Medication SIG (Take, Route, Frequency, Duration) Notes Start Date End Date Status Meloxicam 15 MG 54 tab(s) Orally Onc e a day Active Isosorbide Mononitrate 20 MG 20.25 tab(s ) Orally Twice a day Active EPINEPHrine 0.3 MG/0.3ML as directed Inj ection as needed for 30 days 02/21/2024 Active Chlorthalidone 25 MG Orally Active rOPINIRole HCl 0.5 MG 1616.5 tab(s) Oral ly Once a day Active Neurin-SL 600-600 MCG 1 tablet under the tongue and allow to dissolve Sublingual Once a day memory 02/20/2024 Active Aspirin 81 MG 10 tab(s) Orally Onc e a day Active Sertraline HCl 50 MG 16.25 tab(s) Orally Once a day Active Biotin 5 MG 161.75 tab(s) Orally Once a day Active VitaMelts Vitamin C 60 MG Orally Active [place] 3 1000 MG 0.25 tab(s) Orally T hree times a day Active Multi Vitamin - 1 tablet Orally Once a day 02/20/2024 Active Problems Problem Type SNOMED Code ICD Code Onset Dates Problem Status W/U Status Risk Notes Problem Chronic rhinitis (06327144) Chronic rhinitis (J31.0) Active confirmed Problem Allergy status to other drugs, medicaments and biological substances (Z88.8) Active confirmed Vital Signs Blood pressure systolic 152 mm Hg 02/20/20 24 Blood pressure diastolic 79 mm Hg 024 Height 60 in 02/20/2024 Weight 178.2 lbs 02/20/2024 BMI 34.8 kg/m2 02/20/2024 Oximetry 95 % 02/20/2024 Encounters Encounter Location Date Provider Diagnosis [facility] [address] [facility] [address] [place] [id number] 02/20/2024 Bronwyn Nicholas Chronic rhinitis J31 .0 ; Angioneurotic edema, initial encounter T78.3XXA and Allergy status to other drugs, medicaments and biological substances Z88.8 Assessments Encounter Date Diagnosis (ICD Code) Assessment Notes Treatment Notes Treatment Clinical Notes Section Notes 02/20/2024 Chronic rhinitis (ICD-10 - J31.0) consider future skin testing if needed 02/20/2024 Angioneurotic edema, initial encounter (ICD-10 - T78.3XXA) History is not consistent with a drug allergy since she was taking metoprolol for over 2 years prior to developing angioedema. We discussed that skin testing does not exist for metoprolol but may resume medication since history is not consistent with a drug allergy. Recommend continuing to avoid CTILALY inhibitors given angioedema, but may resume HCTZ, metoprolol and ARBs can be used if needed. Unclear cause for angioedema and labs ordered for further evaluation. We discussed proper use of EpiPen. A copy of this consultation report was sent to the requesting physician. 02/20/2024 Allergy status to other drugs, medicaments and biological substances (ICD-10 - Z88.8) recommend avoiding CITLALY inhibitors but may resume all other blood pressure medications. 02/20/2024 Other Plan Of Treatment Medication Medication Name Sig Start Date Stop Date Notes EPINEPHrine 0.3 MG/0.3ML as directed Inj ection as needed for 30 days 02/21/2024 Treatment Notes Assessment Notes Chronic rhinitis consider future skin testing if needed Angioneurotic edema, initial encounter H istory is not consistent with a drug allergy [...] report was sent to the requesting physician. Allergy status to other drug s, medicaments and biological substances recommend avoiding CITLALY inhibitors but ma y resume all other blood pressure medications. Next Appt Details Follow Up: 3 Months, Reason: Evaluation and Management Progress Notes * Wendi SANDYDOB:1950 (73 yo F)Acc No.[id number]:02/20/2024 Progress Notes Patient: Wendi BLANC Provider: Queta Nicholas MD :1950 A ge:73 Y S ex:Female Date:02/20/2024 Address:[id number] Pcp:Tracey Delgado Subjective: * Chief Complaints: * D rug allergy * HPI: * Introduction: I had the pleasure of seeing Stephanie Sandy, a 73 year old with HTN and recent episodes of angioedema presenting for evaluation of drug allergy. Her is present for today's visit. She was referred by Dr. Delgado and records were reviewed. She reports 2 episodes of lip swelling in the last year. She started lisinopril/HCTZ combination medication about 15 years ago and metoprolol 2 years ago. About 6 months ago, she developed swelling of her upper lip while watching TV. Swelling resolved the next am without any medications. She did not seek medical attention. She discontinued lisinopril/HCTZ the next day. Her thought the swelling was minor. She does not have photos. A few months ago, she again developed upper lip swelling. She did not take any antihistamines a nd resolved the next day. She was recovering from poison savage at the time. She discontinued metoprolol after the episode of lip swelling. She carries an EpiPen at all times. No history of urticaria. Her daughter developed swelling in the past from lisinopril. She reports sneezing and rhinorrhea on a daily basis. She is concnered about dry air in her home. No history of recurrent sinusitis. No decrease in sense of smell. She has dogs and cats at home. She has never undergone allergy skin testing or received allergy immunotherapy. She denies a history of physician-diagnosed allergic rhinitis, recurrent sinusitis or otitis media, recurrent pneumonia, asthma/RAD, eczema, food allergies, urticaria, medication allergies, contact dermatitis, latex allergy, eosinophilic esophagitis or stinging insect hypersensitivity. * ROS: A LLERGY: Positive p er the HPI and history, otherwise unremarkable.? S PECIAL SENSES: Positve for n one. C ONSTITUTIONAL: Positive for n one. E NT: Positive p er the HPI and history, otherwise unremarkable.? R ESPIRATORY: Positive p er the HPI and history, otherwise unremakable.? O PHTHALMOLOGY: Positive for p er the HPI and history, otherwise unremarkable. E NDOCRINOLOGY: Positive for n one. C ARDIOLOGY: Positive for n one. G ASTROENTEROLOGY: Positive for n one. U ROLOGY: Positive for n one. D ERMATOLOGY: Positive for p er the HPI and history, otherwise unremakable. N EUROLOGY: Positive for n one. H EMATOLOGY/LYMPH: Positive for n one. M USCULOSKELETAL: Positive for n one. P SYCHOLOGY: Positive for n one. A ll other review of systems per the HPI and history, otherwise unremarkable. * Medical History: * Surgical History: h ysterectomy 1988 * Hospitalization/Major Diagno stic Procedure: D enies Past Hospitalization * Family History: F ather: , lung cancer, diagnosed with Cancer. M other: alive 94 yrs, breast cancer, diagnosed with Cancer. P aternal Grand Father: . P aternal Grand Mother: , diagnosed with Cancer. M aternal Grand Father: , diagnosed with Cancer, Heart Disease.?Maternal Grand Mother: . S iblings: sister skin cancer. 1 brother(s) , 1 sister(s) . 2 daughter(s) - healthy. . * Social History: M arital Status What is your marital status? m arried Stephanie anna Do you have children? Y es Number of children: 2 A lcohol Screening Do you ever drink alcoholic beverages? N o C affeine: yes, daily. S moking Are you a : n ever smoker Additional Findings: Tobacco Non-User C urrent non-smoker R ecreational drug use Have you ever used recreational drugs? N o D etails on consumption of certain products? Do you regularly consume products with aspartame; Equal or NutraSweet? N o Do you regularly consume products with artificial coloring??Yes Have you ever noticed worsening of your rash with these food items? N o A re any of the following personal care products containing fragrance, dye or preservatives used regularly? Shampoo: Y es Conditioner: Y es Soap: Y es Laundry Detergent: Y es Fabric Softener: Y es Deodorant: Y es Perfume, cologne, after shave: Y es Air freshners or other scented products: Y es Hair coloring dyes or rinses: N o O ccupation Are you currenly employed? N o Are you currently a student? N o * Medications: T akingVitaMelts Vitamin C 60 MG Tablet Disintegrating Orally [place] 3 1000 MG Capsule 0.25 tab(s) Orally Three times a day Multi Vitamin - Tablet 1 tablet Orally Once a day Biotin 5 MG Capsule 161.75 tab(s) Orally Once a day Aspirin 81 MG Tablet Chewable 10 tab(s) Orally Once a day Sertraline HCl 50 MG Tablet 16.25 tab(s) Orally Once a day Neurin-SL 600-600 MCG Tablet Sublingual 1 tablet under the tongue and allow to dissolve Sublingual Once a day memoryrOPINIRole HCl 0.5 MG Tablet 1616.5 tab(s) Orally Once a day Meloxicam 15 MG Tablet 54 tab(s) Orally Once a day Isosorbide Mononitrate 20 MG Tablet 20.25 tab(s) Orally Twice a day Chlorthalidone 25 MG Tablet Orally Taking VitaMelts Vitamin C 60 MG Tablet Disintegrating Orally Taking [place] 3 1000 MG Capsule 0.25 tab(s) Orally Three times a day Taking Multi Vitamin - Tablet 1 tablet Orally Once a day Taking Biotin 5 MG Capsule 161.75 tab(s) Orally Once a day Taking Aspirin 81 MG Tablet Chewable 10 tab(s) Orally Once a day Taking Sertraline HCl 50 MG Tablet 16.25 tab(s) Orally Once a day Taking Neurin-SL 600-600 MCG Tablet Sublingual 1 tablet under the tongue and allow to dissolve Sublingual Once a day memoryTaking rOPINIRole HCl 0.5 MG Tablet 1616.5 tab(s) Orally Once a day Taking Meloxicam 15 MG Tablet 54 tab(s) Orally Once a day Taking Isosorbide Mononitrate 20 MG Tablet 20.25 tab(s) Orally Twice a day Taking Chlorthalidone 25 MG Tablet Orally DiscontinuedNeuriva - Capsule as directed Orally Discontinued Neuriva - Capsule as directed Orally * Allergies: N izatidine: hivesraNITIdine: hivesLisinoprilMetoprolol: other reaction Objective: * Vitals: B P:152/79mm Hg, HR:84/min, Pulse Oximetry:95%, Ht: 60 in, Wt: 178.2 lbs, BMI:34.8Index. * Examination: G eneral examination: General appearance: p leasant, well-developed, well-nourished. HEENT: c onjunctiva are clear bilaterally, no tenderness to palpation of the sinuses, TM's without evidence of acute infection, turbinates with pink mucosa, clear rhinorrhea is present, no polyps noted, no septal perforation, posterior oropharynx is clear,?no tongue swelling, and uvula is midline. Oral cavity: n ormal, no lesions. Neck, thyroid : s upple, non-tender, no anterior cervical lymphadenopathy. Breasts : n ot performed. Heart: R RR, S1-S2, no murmurs, no rubs, no gallops. Lungs: c lear to auscultation and percussion in all lung che, no wheezes or crackles. Neurologic exam: u nremarkable. Skin: n ormal, no rash, dermatographism, urticaria, angioedema. Peripheral pulses: n ormal (2+) bilaterally. Back: n ormal. Extremities: n ormal ROM, no clubbing, no cyanosis, no edema. Genitalia: n ot performed. Assessment: * Assessment: 1. A ngioneurotic edema, initial encounter - T78.3XXA (Primary) 2 . C hronic rhinitis - J31.0 3 . A llergy status to other drugs, medicaments and biological substances - Z88.8 Plan: * Treatment: 2. C hronic rhinitis Notes: consider future skin testing if needed 3. A llergy status to other drugs, medicaments and biological substances Notes: recommend avoiding CITLALY inhibitors but may resume all other blood pressure medications. ? * Procedure Codes: 9 6160 PT-FOCUSED HLTH RISK [id number] DOC MEDS VERIFIED W/PT OR RE * Preventive Medicine: Counseling: M edication instruction: W atch for side effects of prescribed medications, Nasal steroid/antihistamine instruction: avoid septum. E ducation: G ENERAL EDUCATION: Our staff spent an additional 30 minutes in direct contact with the patient educating them on their current diagnoses and proper treatment and prevention of symptoms and the proper use of medications. P atient education material sent to portal? Y es * Follow Up: 3 Months (Reason: Evaluation and Management) * Billing Information: * Visit Code: 23262 Office Visit, New Pt., Level 4. Modifiers: 25 * Procedure Codes: 17580 PT-FOCUSED HLTH RISK ASSMT. G8427 DOC MEDS VERIFIED W/PT OR RE. * NICAL LEAD Sign off status: Completed true * Provider: Queta Nicholas MD Date: 1 04/21/2023 Generated for Nazarioi black/Demi/eTransmitting on: 0 06/09/2024 08:02 AM CDT History and Physical Notes * HPI (History of Present Illness) Category Sub-Category Detail Notes Category Not es *Introduction I had the pleasure o f seeing Wendi Sandy, a 73 year old with HTN and recent episodes of angioedema presenting for evaluation of drug allergy. Her is present for today's visit. She was referred by Dr. Delgado and records were reviewed. She reports 2 episodes of lip swelling in the last year. She started lisinopril/HCTZ combination medication about 15 years ago and metoprolol 2 years ago. About 6 months ago, she developed swelling of her upper lip while watching TV. Swelling resolved the next am without any medications. She did not seek medical attention. She discontinued lisinopril/HCTZ the next day. Her thought the swelling was minor. She does not have photos. A few months ago, she again developed upper lip swelling. She did not take any antihistamines and resolved the next day. She was recovering from poison savage at the time. She discontinued metoprolol after the episode of lip swelling. She carries an EpiPen at all times. No history of urticaria. Her daughter developed swelling in the past from lisinopril. She reports sneezing and rhinorrhea on a daily basis. She is concnered about dry air in her home. No history of recurrent sinusitis. No decrease in sense of smell. She has dogs and cats at home. She has never undergone allergy skin testing or received allergy immunotherapy. She denies a history of physician-diagnosed allergic rhinitis, recurrent sinusitis or otitis media, recurrent pneumonia, asthma/RAD, eczema, food allergies, urticaria, medication allergies, contact dermatitis, latex allergy, eosinophilic esophagitis or stinging insect hypersensitivity Examination Category Sub-Category Detail Notes Category Not es General examination HEENT: conjunctiva are clear bilaterally, no tenderness to palpation of the sinuses, TM's without evidence of acute infection, turbinates with pink mucosa, clear rhinorrhea is present, no polyps noted, no septal perforation, posterior oropharynx is clear, no tongue swelling, and uvula is midline Neck, thyroid : supple, non-tender, no anterior cervical lymphadenopathy Heart: RRR, S1-S2, no murmu rs, no rubs, no gallops Lungs: clear to auscultatio n and percussion in all lung che, no wheezes or crackles Abdomen: Extremities: normal ROM, no clubb ing, no cyanosis, no edema General appearance: pleasant, well-devel oped, well-nourished Skin: normal, no rash, brittany matographism, urticaria, angioedema Neurologic exam: unremarkable Oral cavity: normal, no lesions Breasts : not performed Peripheral pulses: normal (2+) bilatera lly Back: normal Genitalia: not performed
--- NOTE | 2024-06-09 08:05 | ED.CHESTPAIN ---
HPI - Chest Pain General Chief Complaint: Chest Pain Stated Complaint: cp Time Seen by Provider: 06/09/24 08:04 History of Present Illness HPI narrative: Pt presents with Cp since 0400 this morning. Pt says the pain is constant and radiates to shoulder. Pt sasy it gets worse with movement but not better with rest or position changes. Pt has some mild SOB. Related Data Home Medications ?Medication ?Instructions ?Recorded ?Confirmed ?Last Taken ?Type isosorbide mononitrate 30 mg 30 mg PO DAILY 10/13/20 08/30/22 11/22/20 History tablet,extended release 24 hr lisinopril 20 1 tablet PO DAILY 10/13/20 08/30/22 11/22/20 History mg-hydrochlorothiazide 25 mg tablet meloxicam 15 mg tablet 15 mg PO DAILY 10/13/20 08/30/22 11/22/20 History metoprolol succinate 25 mg 25 mg PO DAILY 10/13/20 08/30/22 11/23/20 History tablet,extended release 24 hr rosuvastatin 5 mg tablet 5 mg PO DAILY 10/13/20 08/30/22 11/22/20 History aspirin 81 mg capsule 81 mg PO DAILY 08/23/22 08/30/22 Unknown History coffee extract 100 mg-phosphatidyl cap PO 08/23/22 08/30/22 Unknown History serine 100 mg capsule (Neuriva Original) multivitamin 1 tablet PO DAILY 08/23/22 08/30/22 Unknown History omeprazole magnesium 20 mg 20 mg PO DAILY 08/23/22 08/30/22 Unknown History tablet,delayed release (Prilosec OTC) sertraline 25 mg tablet (Zoloft) 25 mg PO DAILY 08/23/22 08/30/22 Unknown History omega-3 fatty acids 500 mg capsule 500 mg PO DAILY 08/30/22 08/30/22 Unknown History Allergies Allergy/AdvReac Type Severity Reaction Status Date / Time nizatidine Allergy Intermediate hives Verified 06/09/24 08:16 ranitidine (From Zantac) Allergy Hives Verified 06/09/24 08:16 Review of Systems Review of Systems: All systems reviewed & are unremarkable except as noted in HPI and below PMFSH Past Medical History Medical History Constipation Coronary artery disease 50-60% blockage, no stents GERD (gastroesophageal reflux disease) Hepatitis Hyperlipidemia Hypertension IBS (irritable bowel syndrome) MING (obstructive sleep apnea) Osteoporosis Surgical History Surgical History History of cataract extraction History of hysterectomy Family History Family History Mother Carcinoma of colon Grandparent Hypertension Father Lung cancer Social History Social History Smoking status: Never smoker Alcohol intake: never Substance use: never Substance use type: does not use Living arrangements: with family Occupation/Education: retired Gender identity (if verbalized by the patient): Female Exam Const: General: no acute distress Nutritional Appearance: obese Orientation/consciousness: patient oriented x3 Limitations: no limitations Chest: Chest palpation & inspection: normal inspection of the chest and no tenderness Resp: Effort & Inspection: normal respiratory effort Auscultation: clear to auscultation bilaterally Cardio: Rate: regular rate Rhythm: regular rhythm GI: GI Palp: Yes Soft to palpation and No Tenderness to palpation present (GI) Auscultation: normal bowel sounds Skin: General skin exam: normal color Rashes: no rashes Wounds: no wounds Neuro: General: patient oriented x3, moves all extremities, no focal motor deficits and CN's II-XI intact bilaterally Speech: normal speech Extrem: General: edema bilateral (trace) Course Vital Signs Vital signs: Vital Signs Temperature 97.5 F L 06/09/24 08:00 Pulse Rate 78 06/09/24 08:00 Respiratory Rate 22 H 06/09/24 08:00 Blood Pressure 181/88 H 06/09/24 08:00 Pulse Oximetry 97 06/09/24 08:00 Oxygen Delivery Room Air 06/09/24 08:00 Temperature 98.1 F 06/09/24 13:04 Pulse Rate 67 06/09/24 13:04 Respiratory Rate 18 06/09/24 13:04 Blood Pressure 104/93 H 06/09/24 13:04 Pulse Oximetry 93 06/09/24 13:04 Oxygen Delivery Room Air 06/09/24 09:00 MDM - Chest Pain MDM Narrative Medical decision making narrative: Pt presents with CP for last 4 hrs constant. EKG no STEMI. will do cardiac work up to ruleout ACS but seems less likely. Will give some morphine for pain and reassess. pt neg trop x 2 and neg ekg x 2. atypical CP and home on nsaids Lab Data 06/09/24 08:08 06/09/24 08:08 Labs: Lab Results 06/09/24 06/09/24 Range/Units 08:08 10:47 WBC 10.1 H (4.5-10.0) K/mm3 RBC 4.10 L (4.2-5.4) M/mm3 Hgb 13.3 (12.0-15.0) g/dL Hct 41.3 (37.0-47.0) % MCV 100.7 H (80-100) fl MCH 32.4 (26-34) pg MCHC 32.2 (32-36) g/dl RDW 13.2 (11.5-14.5) % Plt Count 214 (150-375) k/mm3 MPV 10.6 H (7.4-10.4) fl Immature Gran % (Auto) 0.3 (0-0.5) % Neut % (Auto) 72.3 (45.5-73.1) % Lymph % (Auto) 18.7 (18.3-44.2) % [place] % (Auto) 6.3 (2.6-8.5) % Eos % (Auto) 2.1 (0-4.4) % Baso % (Auto) 0.3 (0.2-1.2) % Lymph # (Auto) 1.89 (0.9-3.2) K/mm3 [place] # (Auto) 0.6 (0.1-0.6) K/mm3 Eos # (Auto) 0.2 (0-0.3) K/mm3 Baso # (Auto) 0.0 (0.0-0.1) K/mm3 Abs Immat Gran (auto) 0.03 (0.00-0.031) K/mm3 Absolute Neuts (auto) 7.3 H (1.3-6.7) K/mm3 Absolute Nucleated RBC 0.000 (0.0-0.012) K/mm3 Nucleated RBC % 0.0 (0.0-0.2) % PT 13.3 (11.1-14.7) Seconds INR 1.0 APTT 24.9 (22.3-36.8) Seconds Sodium 141 (137-145) mmol/L Potassium 3.9 (3.4-5.0) mmol/L Chloride 104 (98-107) mmol/L Carbon Dioxide 28 (22-30) mmol/L Anion Gap 9 (4-12) mmol/L BUN 18 H (7-17) mg/dL Creatinine 0.83 (0.7-1.0) mg/dL Estim Creat Clear Calc 52 ml/min Estimated GFR > 60 (59 - ) Glucose 110 (65-110) mg/dL Calcium 9.0 (8.4-10.2) mg/dL Total Bilirubin 0.5 (0.2-1.3) mg/dL AST 22 (14-36) U/L ALT 20 (6-35) U/L Alkaline Phosphatase 91 (38-126) U/L Troponin I < 0.012 < 0.012 (0.000-0.034) ng/mL Total Protein 8.0 (6.3-8.2) g/dL Albumin 4.2 (3.5-5.1) g/dL Lipase 52 (23-300) U/L Discharge Plan Discharge Clinical Impression: Atypical chest pain Patient Disposition: Home, Self-Care Condition: Stable Instructions: Antibiotic Form, Chest Wall Pain (ED) Patient Language: Chinese Prescriptions: New naproxen [Naprosyn] 500 mg tablet 500 mg PO BID Qty: 14 0RF No Action lisinopril-hydrochlorothiazide 20-25 mg tablet 1 tablet PO DAILY meloxicam 15 mg tablet 15 mg PO DAILY rosuvastatin 5 mg tablet 5 mg PO DAILY isosorbide mononitrate 30 mg tablet extended release 24 hr 30 mg PO DAILY metoprolol succinate 25 mg tablet extended release 24 hr 25 mg PO DAILY sertraline [Zoloft] 25 mg tablet 25 mg PO DAILY multivitamin Tablet 1 tablet PO DAILY aspirin 81 mg capsule 81 mg PO DAILY omeprazole magnesium [Prilosec OTC] 20 mg tablet,delayed release (DR/EC) 20 mg PO DAILY Neuriva Original 100-100 mg capsule PO omega-3 fatty acids 500 mg capsule 500 mg PO DAILY Follow-up/Referrals: Teresa Damon DO [Primary Care Provider] - Quality HEART score for chest pain patients History: slightly suspicious ECG: normal Age: > or = to 65 years Risk factors: 1 or 2 risk factors Troponin: < or = to 1x normal limit Heart score: 3
[2024-06-09 08:12] LABS: Basophils Percent Auto 0.3 % (0.2-1.2); Eosinophils Absolute Auto 0.2 K/mm3 (0-0.3); Eosinophils Percent Auto 2.1 % (0-4.4); Hematocrit 41.3 % (37.0-47.0); Hemoglobin 13.3 g/dL (12.0-15.0); Immature Granulocyte Absolute 0.03 K/mm3 (0.00-0.031); Immature Granulocyte Percent A 0.3 % (0-0.5); Lymphocytes Absolute Auto 1.89 K/mm3 (0.9-3.2); Lymphocytes Percent Auto 18.7 % (18.3-44.2); Mean Corpuscular HGB Conc 32.2 g/dl (32-36); Mean Corpuscular Hemoglobin 32.4 pg (26-34); Mean Corpuscular Volume 100.7 fl (80-100); Mean Platelet Volume 10.6 fl (7.4-10.4); Monocytes Absolute Auto 0.6 K/mm3 (0.1-0.6); Monocytes Percent Auto 6.3 % (2.6-8.5); Neutrophils Absolute Auto 7.3 K/mm3 (1.3-6.7); Neutrophils Percent Auto 72.3 % (45.5-73.1); Platelet Count Result 214 k/mm3 (150-375); Red Cell Distribution Width 13.2 % (11.5-14.5); White Blood Count 10.1 K/mm3 (4.5-10.0)
[2024-06-09] MEDS: ASPIRIN 81 MG CHEWABLE TABLET 324 MG PO (08:17)
[2024-06-09] MEDS: ONDANSETRON INJ 4 MG/2 ML VIAL IV PUSH (08:18)
[2024-06-09] MEDS: MORPHINE SULFATE (*CRX) 4 MG/ML INJ IV PUSH (08:19)
[2024-06-09 08:34] LABS: Alanine Aminotransferase 20 U/L (6-35); Albumin Level 4.2 g/dL (3.5-5.1); Alkaline Phosphatase 91 U/L (38-126); Anion Gap 9 mmol/L (4-12); Aspartate Amino Transferase 22 U/L (14-36); Bilirubin,Total 0.5 mg/dL (0.2-1.3); Blood Urea Nitrogen 18 mg/dL (7-17); Carbon Dioxide 28 mmol/L (22-30); Chloride 104 mmol/L (98-107); Estimated CRCL calculation 52 ml/min; Estimated Glomerular Filt Rate > 60; Glucose 110 mg/dL (65-110); Lipase 52 U/L (23-300); Potassium 3.9 mmol/L (3.4-5.0); Sodium 141 mmol/L (137-145)
[2024-06-09 08:42] LABS: Prothrombin Time 13.3 Seconds (11.1-14.7)
[2024-06-09 08:43] LABS: Partial Thromboplastin Time 24.9 Seconds (22.3-36.8)
[2024-06-09 08:45] LABS: Troponin I < 0.012 ng/mL (0.000-0.034)
--- OUTSIDE RECORDS SUMMARY | 2024-06-09 09:55 | XMS_ITS | Clinical Summary ---
Author Organization [facility] al Address [address] [place] [address] Care Team Providers Care Service Clerk Name Role Phone Gareth Diaz MD Unavailable [phone] Tracey Delgado MD Primary Care Provider [phone] Allergies Active Allergy Reactions Criticality Noted Date Comments Nizatidine Unknown 10/30/2018 Ranitidine Hives Medium 06/24/2019 Medications meloxicam (MOBIC) 15 mg tablet Take 1 tablet (15 mg total) by mouth daily 3 9 Active omega 2-afg-afv-fish oil 300-1,000 mg capsule Active aspirin 81 [...] year. Assessment & Plan (06/09/2021 2:46 PM PRESS CLEANER): The patient states that she did not [...] understanding. Assessment & Plan (06/08/2020 2:40 PM PRESS CLEANER): Due to the patient's elevated AHI, snoring, [...] a new mask. The DME company is [employer]. The patient is benefitting from auto SV [...] night. Assessment & Plan (06/09/2021 2:46 PM PRESS CLEANER): Patient denies that her limbs are moving at night when she sleeps. Assessment & Plan (06/08/2020 2:41 PM PRESS CLEANER): The patient states her periodic limb movement disorder is currently asymptomatic. The patient was offered labs to evaluate iron and ferritin levels, the patient would like to wait until she starts having symptoms before obtaining lab work. Coronary artery disease invo lving [place] coronary artery of [place] heart without angina pectoris 07/11/2019 Essential hypertension 06/24/2019 Obesity (BMI 35.0-39.9 without comorbidity) 06/01 Abnormal EKG 06/24/2019 Abnormal stress test 06/24/2019 Resolved Problems Problem Noted Date Diagnosed Date Resolved Date Dyslipidemia 07/11/2019 01/21/2021 Snoring 06/24/2019 10/04/2021 Encounters Date Type Department Care Team Description 04/17/2024 Orders Only [facility] Medical [facility] Cardiology [address] [place] [address] Kathi Quijano MD 04/16/2024 2:00 PM PRESS CLEANER Office Visit [facility] Medical [facility] Cardiology [address] [place] [id number] Gareth Diaz MD Coronary artery disease involving [place] coronary artery of [place] heart without angina pectoris (Primary Dx); Essential hypertension; Mixed hyperlipidemia; Lower extremity edema; Shortness of breath 04/15/2024 10:48 AM PRESS CLEANER - 04/15/2024 11:59 PM PRESS CLEANER Hospital Encounter [facility] Breast Imaging [facility] [place] [address] Screening mammogram, encounter for Discharge Disposition: Discharge to home or self care from Last 3 Months Immunizations Immunization Administration Dates Next Due Influenza, Quadrivalent, Spl it, Preservative Free, Intramuscular 01/16/2019 Pneumococcal Polysaccharide PPV23 11/07/2014 Surgical History Surgery Date Site/Laterality Comments SC TOTAL ABDOMINAL HYSTERECT W/WO RMVL TUBE OVARY [...] on file Legal Sex Female 5:57 AM PRESS CLEANER Gender Identity Female 01/09/2020 9:13 PM CDT Sexual Orientation Not on file Obstetrics History Para Term AB IAB SAB Ectopic Multiple Livin g Live Births 2 2 2 Date Outcome GA Total Labor Labor/2nd/3rd Weight Sex Type Anes PTL Theodora A1 A5 Name Clin Term Term Last Filed Vital Signs Vital Sign Reading Time Taken Comments Blood Pressure 132/74 04/16/2024 2:51 PM PRESS CLEANER Pulse 68 04/16/2024 2:51 PM PRESS CLEANER Temperature 36.6 C (97.8 F) 11/01/2023 1:35 PM CDT Respiratory Rate 18 11/01/2023 1:35 PM CDT Oxygen Saturation 97% 11/01/2023 1:35 PM CDT Inhaled Oxygen Concentration - - Weight 84.8 kg (186 lb 14.4 oz) 04/16/2024 2:51 PM PRESS CLEANER Height 152.4 cm (5') 04/16/2024 2:51 PM PRESS CLEANER Body Mass Index 36.5 04/16/2024 2:51 PM PRESS CLEANER Plan of Treatment Health Maintenance Due Date [...] Read Routine (OP Routine) 04/15/2024 11:03 AM PRESS CLEANER Screening mammogram, encounter for DEXA AXIAL SKELETON BONE DENSITY 1 OR MORE SITES Schedule Routine, Read Routine (OP Routine) 03/22/2023 1:32 PM PRESS CLEANER Asymptomatic menopausal state from Last 3 Months or Most Recently Relevant to Health Maintenance Results * Screening Mammogram Bilateral W Howard (04/15/2024 11:03 AM PRESS CLEANER) Anatomical Region Laterality Modality Breast Bilateral Mammography Impressions 04/15/2024 11:27 AM PRESS CLEANER BI-RADS ATLAS category (overall): 2 - Benign There is no mammographic evidence of malignancy. A 1 year screening mammogram is recommended. The patient has been or will be contacted. We recommend annual screening mammography for women at average risk of breast cancer beginning at age 40, based on guidelines of the [place] [employer] (ACR Practice Parameter for the Performance of Screening and Diagnostic Mammography) and [place] [employer]. For women with and elevated risk of breast cancer, please refer to the ACR Practice Parameter for specific screening recommendations. The patient will be entered into a reminder system with a target due date of 1 year for her next screening exam. 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 MF: VICKIE Report ID: [id number] Reading Location: [place] [address] Tracey Delgado MD IMG DXA PROCEDURES Final R esult from Last 3 Months or Most Recently Relevant to Health Maintenance Insurance [facility] MEDICARE MEDICARE SOLUTIONS Advance Directives For more information, please contact: [phone] * Full Code (Latest Code Status on File) Date Activated Date Inactivated Comments 11/05/2018 8:20 AM 11/05/2018 2:24 PM Care Teams Service Clerk Relationship Specialty Start Date End Date Tracey Delgado MD [address] [facility] [place] [address] PCP - General Internal Medicine 01/16/20 Gareth Diaz MD [address] [place] [address] Tunneling Machine Operator Cardiology 06/30/19
--- OUTSIDE RECORDS SUMMARY | 2024-06-09 09:55 | XMS_ITS | Referral Summary ---
Author Organization [facility] Address [address] [place] [address] Care Team Providers Care Wastewater Process Engineer Name Role Phone Gareth Diaz MD Unavailable [phone] Tracey Delgado MD Primary Care Provider [phone] Encounters Date Type Department Care Team Description 04/17/2024 Orders Only [facility] Medical [facility] Cardiology [address] [place] [address] [address] ProviderKathi MD 04/16/2024 2:00 PM PURIFICATION DIRECTOR Office Visit [facility] Cardiology [facility] [facility] [address] [place] [address] Gareth Diaz MD Coronary artery disease involving jamul coronary artery of jamul heart without angina pectoris (Primary Dx); Essential hypertension; Mixed hyperlipidemia; Lower extremity edema; Shortness of breath 04/15/2024 10:48 AM PURIFICATION DIRECTOR - 04/15/2024 11:59 PM PURIFICATION DIRECTOR Hospital Encounter [facility] Breast Imaging [address] [place] [phone] Screening mammogram, encounter for Discharge Disposition: Discharge to home or self care from Last 3 Months Allergies Active Allergy Reactions Criticality Noted Date Comments Nizatidine Unknown 10/30/2018 Ranitidine Hives Medium 06/24/2019 Medications meloxicam (MOBIC) 15 mg tablet Take 1 tablet (15 mg total) by mouth daily 3 9 Active omega 6-rgy-aqg-fish oil 300-1,000 mg capsule Active aspirin 81 [...] her current settings. The patient's DME is [employer]. Assessment & Plan (10/04/2021 2:15 PM CDT): The patient continues to benefit from the auto SV BiPAP unit. Her DME supplier is [employer]. She will follow-up with me in 1 year. Assessment & Plan (06/09/2021 2:46 PM PURIFICATION DIRECTOR): The patient states that she did not [...] understanding. Assessment & Plan (06/08/2020 2:40 PM PURIFICATION DIRECTOR): Due to the patient's elevated AHI, snoring, [...] a new mask. The DME company is [employer]. The patient is benefitting from auto SV [...] night. Assessment & Plan (06/09/2021 2:46 PM PURIFICATION DIRECTOR): Patient denies that her limbs are moving at night when she sleeps. Assessment & Plan (06/08/2020 2:41 PM PURIFICATION DIRECTOR): The patient states her periodic limb movement disorder is currently asymptomatic. The patient was offered labs to evaluate iron and ferritin levels, the patient would like to wait until she starts having symptoms before obtaining lab work. Coronary artery disease invo lving jamul coronary artery of jamul heart without angina pectoris 07/11/2019 Essential hypertension [...] on file Legal Sex Female 5:57 AM PURIFICATION DIRECTOR Gender Identity Female 01/09/2020 9:13 PM CDT Sexual Orientation Not on file Last Filed Vital Signs Vital Sign Reading Time Taken Comments Blood Pressure 132/74 04/16/2024 2:51 PM PURIFICATION DIRECTOR Pulse 68 04/16/2024 2:51 PM PURIFICATION DIRECTOR Temperature 36.6 C (97.8 F) 11/01/2023 1:35 PM CDT Respiratory Rate 18 11/01/2023 1:35 PM CDT Oxygen Saturation 97% 11/01/2023 1:35 PM CDT Inhaled Oxygen Concentration - - Weight 84.8 kg (186 lb 14.4 oz) 04/16/2024 2:51 PM PURIFICATION DIRECTOR Height 152.4 cm (5') 04/16/2024 2:51 PM PURIFICATION DIRECTOR Body Mass Index 36.5 04/16/2024 2:51 PM PURIFICATION DIRECTOR Plan of Treatment Not on file Procedures Procedure Name Priority Date/Time Associated Diagnosis Comments SCREENING MAMMOGRAM BILATERAL W HOWARD Schedule Routine, Read Routine (OP Routine) 04/15/2024 11:03 AM PURIFICATION DIRECTOR Screening mammogram, encounter for DEXA AXIAL SKELETON BONE DENSITY 1 OR MORE SITES Schedule Routine, Read Routine (OP Routine) 03/22/2023 1:32 PM PURIFICATION DIRECTOR Asymptomatic menopausal state from Last 3 Months or Most Recently Relevant to Health Maintenance Results * Screening Mammogram Bilateral W Howard (04/15/2024 11:03 AM PURIFICATION DIRECTOR) Anatomical Region Laterality Modality Breast Bilateral Mammography Impressions 04/15/2024 11:27 AM PURIFICATION DIRECTOR BI-RADS ATLAS category (overall): 2 - Benign There is no mammographic evidence of malignancy. A 1 year screening mammogram is recommended. The patient has been or will be contacted. We recommend annual screening mammography for women at average risk of breast cancer beginning at age 40, based on guidelines of the [place] [employer] (ACR Practice Parameter for the Performance of Screening and Diagnostic Mammography) and [place] [employer]. For women with and elevated risk of breast cancer, please refer to the ACR Practice Parameter for specific screening recommendations. The patient will be entered into a reminder system with a target due date of 1 year for her next screening exam. 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 MF: VICKIE Report ID: [id number] Reading Location: [place] [address] Tracey Delgado MD IMG DXA PROCEDURES Final R esult from Last 3 Months or Most Recently Relevant to Health Maintenance Insurance [facility] MEDICARE MEDICARE SOLUTIONS Advance Directives For more information, please contact: [phone] * Full Code (Latest Code Status on File) Date Activated Date Inactivated Comments 11/05/2018 8:20 AM 11/05/2018 2:24 PM Care Teams Wastewater Process Engineer Relationship Specialty Start Date End Date Tracey Delgado MD [address] [facility] [place] [address] PCP - General Internal Medicine 01/16/20 Gareth Diaz MD [address] [place] [address] Community Nutrition Educator Cardiology 06/30/19
--- OUTSIDE RECORDS SUMMARY | 2024-06-09 09:55 | XMS_ITS | Clinical Summary ---
Author Organization [facility] Address [facility] [place] [address] Care Team Providers Care Cloth Feeder Name Role Phone Tracye Delgado MD Primary Care Provider [phone] Allergies Active Allergy Reactions Criticality Noted Date [...] this topic Medical Devices Implanted Type Area Panel Fitter Device Identifier Shelf Expiration Date Model / Serial / Lot Iol [employer] [id number] - [id number] Implanted:Qty: 1 on 01/24/2021 by Abiel Bello MD at [facility] Lens Left: Eye [employer] 01/13/2024 ZCB00 / [id number] / Insurance [facility] Member Subscriber Plan / Payer (Ef fective 2019-Present) Name:Wendi Goncalves Relation to Subscriber:Self Name:Wendi Goncalves Payer ID:[id number] (NAIC) Type:Not on file Address: [place] [id number] Care Teams Cloth Feeder Relationship Specialty Start Date End Date Tracey Delgado MD [address] [place] [address] PCP - General INTERNAL MEDICINE 03/03/20
--- NOTE | 2024-06-09 10:46 | ECG_ITS ---
Test Date: 2024-06-09 10:52:38 Measurements Intervals [place] Rate: 64 P: 72 SD: 156 QRS: -14 QRSD: 78 T: 0 QT: 413 QTc: 428 Interpretive Statements SINUS RHYTHM INFERIOR MYOCARDIAL INFARCTION , PROBABLY OLD [40+ ms Q WAVE AND/OR ST/T ABNORMALITY IN II/aVF] Compared to ECG 06/09/2024 08:01:35 Myocardial infarct finding now present T-wave abnormality no longer present Electronically Signed On 06-09-2024 11:53:22 CDT by Deny Pedersen M.D.
[2024-06-09 12:33] LABS: Troponin I < 0.012 ng/mL (0.000-0.034)
== END 2024-06-09 13:07 | disposition home or self-care (01) ==
PROVIDERS: Emergency Provider Emergency Medicine; PCP Family Medicine
DX: R07.89 Other chest pain (principal); I25.10 Atherosclerotic heart disease of native coronary artery without angina pectoris; I10 Essential (primary) hypertension; E78.5 Hyperlipidemia, unspecified; G47.33 Obstructive sleep apnea (adult) (pediatric); K58.9 Irritable bowel syndrome, unspecified; K21.9 Gastro-esophageal reflux disease without esophagitis; M81.0 Age-related osteoporosis without current pathological fracture; Z98.49 Cataract extraction status, unspecified eye; Z90.710 Acquired absence of both cervix and uterus; R94.31 Abnormal electrocardiogram [ECG] [EKG]
CPT/HCPCS: 36415; 71046; 80053; 83690; 84484; 85025; 85610; 85730; 93005; 96374; 96375; 99284; A9270; J2270; J2405

== ENCOUNTER 2024-10-05 14:17 | Emergency (ER) | payer MEDICARE, SELFPAY ==
[2024-10-05 14:28] VITALS: BP 146/85; PULSE 80; RESP 16; TEMP 36.4; O2SAT 97
--- NOTE | 2024-10-05 15:14 | ED.URI ---
HPI - URI/Sore Throat General Chief Complaint: Upper Respiratory Infection Stated Complaint: Cold Symptoms/Swollen Leg Time Seen by Provider: 10/05/24 15:14 Source: patient Mode of arrival: ambulatory Limitations: no limitations History of Present Illness HPI Narrative: 74-year-old female with a history of CAD and HTN presented for complaint of cough for 3 weeks with chest congestion, shortness of breath with exertion and laying flat. Also admits to increase leg swelling from baseline, stating right is worse than left. Patient is accompanied by daughter who says that her O2 sat was 78% today while she was outside with her dog. Denies use of home O2. Patient says she had fluid on her lungs a few months ago; since then had an echo and a stress test, and is scheduled with loss prevention operations manager in 3 days for those results. Currently denies calf pain, chest pain, palpitations, wheezing, nausea, vomiting or dizziness. Related Data Home Medications ?Medication ?Instructions ?Recorded ?Confirmed ?Last Taken ?Type isosorbide mononitrate 30 mg 30 mg PO DAILY 10/13/20 07/21/24 11/22/20 History tablet,extended release 24 hr meloxicam 15 mg tablet 15 mg PO DAILY 10/13/20 07/21/24 11/22/20 History metoprolol succinate 25 mg 25 mg PO DAILY 10/13/20 07/21/24 11/23/20 History tablet,extended release 24 hr rosuvastatin 5 mg tablet 5 mg PO DAILY 10/13/20 07/21/24 11/22/20 History aspirin 81 mg capsule 81 mg PO DAILY 08/23/22 07/21/24 Unknown History coffee extract 100 mg-phosphatidyl cap PO 08/23/22 07/21/24 Unknown History serine 100 mg capsule (Neuriva Original) multivitamin 1 tablet PO DAILY 08/23/22 07/21/24 Unknown History omega-3 fatty acids 500 mg capsule 500 mg PO DAILY 08/30/22 07/21/24 Unknown History epinephrine 0.3 mg/0.3 mL IM 06/13/24 07/21/24 Unknown History injection, auto-injector chlorthalidone 25 mg tablet mg PO 07/21/24 07/21/24 Unknown History cholecalciferol (vitamin D3) 50 50 mcg PO DAILY 07/21/24 07/21/24 Unknown History mcg (2,000 unit) tablet esomeprazole magnesium 20 mg 20 mg PO DAILY 07/21/24 07/21/24 Unknown History capsule,delayed release (Nexium) ropinirole 0.5 mg tablet mg PO 07/21/24 07/21/24 Unknown History sertraline 100 mg tablet mg PO 07/21/24 07/21/24 Unknown History vitamin E mixed 400 unit capsule unit PO 07/21/24 07/21/24 Unknown History Allergies Allergy/AdvReac Type Severity Reaction Status Date / Time nizatidine Allergy Intermediate hives Verified 10/05/24 14:47 ranitidine (From Zantac) Allergy Hives Verified 10/05/24 14:47 Review of Systems Review of Systems: CONSTITUTIONAL: Denies body aches, fever, chills, or sweats. ENT: Denies rhinorrhea CARDIOVASCULAR: Denies chest pain, palpitations, reports edema. RESPIRATORY: Reports cough, dyspnea, orthopnea GASTROINTESTINAL: Denies abdominal pain, nausea, vomiting, or diarrhea. GENITOURINARY: Denies dysuria or hematuria. SKIN: Denies rash MUSCULOSKELETAL: Denies back pain, joint pain, or myalgia. NEUROLOGIC: Denies headache, numbness, tingling, or weakness. PSYCH: Denies depression or anxiety. All systems reviewed & are unremarkable except as noted in HPI and below PMFSH Past Medical History Medical History Right elbow pain Rectal bleeding IBS (irritable bowel syndrome) GERD (gastroesophageal reflux disease) MING (obstructive sleep apnea) Hyperlipidemia Constipation Osteoporosis Hypertension Hepatitis Coronary artery disease 50-60% blockage, no stents Surgical History Surgical History History of cataract extraction History of hysterectomy Family History Family History Mother Carcinoma of colon Grandparent Hypertension Father Lung cancer Social History Social History Smoking status: Never smoker Alcohol intake: never Substance use: never Substance use type: does not use Living arrangements: with family Occupation/Education: retired Gender identity (if verbalized by the patient): Female Comments At time of signature, I have reviewed and agree with nursing past medical, surgical, social and family history unless otherwise noted. Please see nursing chart for further information. There is no relevant family history pertinent to the presenting complaint Exam Narrative: GENERAL: Well-appearing, and in no acute distress. EYES: EOMI. No redness or drainage. Conjunctivae normal. ENT: Mucous membranes pink and moist. NECK: Normal AROM. CHEST: No respiratory distress. Clear to auscultation; diminished to bilateral bases. HEART: Regular rate and rhythm. No murmur appreciated. Normal peripheral pulses. ABDOMEN: Soft, nontender, nondistended, normal active bowel sounds. EXTREMITIES: Normal range of motion. BLE edema; Right 3+ left 2+, ppp. SKIN: Warm, dry, no rash. Capillary refill normal. Normal skin turgor. NEURO: No focal deficits. Alert and oriented x3. Gait steady with cane. PSYCH: Normal affect. Course Course Emergency Course: Patient is aware of diagnosis, understands and agrees to treatment plan. Anticipatory guidance given. Patient agrees to follow-up as directed and is aware of reasons to seek care at the emergency department. Portions of this record may have been created with voice recognition software Level of Care: Express Care Visit Vital Signs Vital signs: Vital Signs Temperature 97.6 F 10/05/24 14:28 Pulse Rate 80 10/05/24 14:28 Respiratory Rate 16 10/05/24 14:28 Blood Pressure 146/85 H 10/05/24 14:28 Pulse Oximetry 97 10/05/24 14:28 Temperature 97.6 F 10/05/24 14:28 Pulse Rate 80 10/05/24 14:28 Respiratory Rate 16 10/05/24 14:28 Blood Pressure 146/85 H 10/05/24 14:28 Pulse Oximetry 97 10/05/24 14:28 Transfer Transfered to: [facility] Transportation: Other ( Private vehicle) Transfer rationale: Pt is agreeable to transfer. Requests transfer to [facility] via private vehicle. Risks of transportation reviewed with pt including injury, worsening of condition and . v/u. daughter will be driving pt; Report called to hospital, spoke with Dr Perez accepting physician. Pt is in stable condition at time of transfer. Advised to remain NPO and go directly to the hospital. MDM - URI/Sore Throat MDM Narrative Medical decision making narrative: patient with reports of shortness of breath, cough, leg swelling and decreased oxygenation at home. Advised ER transfer. Patient requests [facility]. Differential Diagnosis Differential diagnosis: Likely other (Angioedema, perforation, asthma, pneumonia, PE, tension pneumothorax, cardiac tamponade [place], pericarditis, pleural effusion, CHF, bronchitis, cardiac arrhythmia) Discharge Plan Discharge Clinical Impression: Localized swelling of both lower legs, Acute dyspnea Patient Disposition: Acute Care Hospital Condition: Stable Patient Language: Pashto Prescriptions: No Action sertraline 100 mg tablet PO vitamin E mixed 400 unit capsule PO chlorthalidone 25 mg tablet PO ropinirole 0.5 mg tablet PO esomeprazole magnesium [Nexium] 20 mg capsule,delayed release(DR/EC) 20 mg PO DAILY cholecalciferol (vitamin D3) 50 mcg (2,000 unit) tablet 50 mcg PO DAILY meloxicam 15 mg tablet 15 mg PO DAILY rosuvastatin 5 mg tablet 5 mg PO DAILY isosorbide mononitrate 30 mg tablet extended release 24 hr 30 mg PO DAILY metoprolol succinate 25 mg tablet extended release 24 hr 25 mg PO DAILY multivitamin Tablet 1 tablet PO DAILY aspirin 81 mg capsule 81 mg PO DAILY Neuriva Original 100-100 mg capsule PO omega-3 fatty acids 500 mg capsule 500 mg PO DAILY epinephrine 0.3 mg/0.3 mL auto-injector IM naproxen [Naprosyn] 500 mg tablet 500 mg PO BID Qty: 14 0RF Follow-up/Referrals: Teresa Damon DO [Primary Care Provider] - Time of Disposition: 16:16
== END 2024-10-05 15:38 | disposition short-term general hospital (02) ==
PROVIDERS: Emergency Provider Nurse Practitioner Family; PCP Family Medicine
DX: R22.43 Localized swelling, mass and lump, lower limb, bilateral (principal); R06.00 Dyspnea, unspecified; I25.10 Atherosclerotic heart disease of native coronary artery without angina pectoris; I10 Essential (primary) hypertension; E78.5 Hyperlipidemia, unspecified; K21.9 Gastro-esophageal reflux disease without esophagitis; M81.0 Age-related osteoporosis without current pathological fracture; Z79.82 Long term (current) use of aspirin
CPT/HCPCS: 99212; G0463

== ENCOUNTER 2024-12-29 09:04 | Outpatient (CLI) | payer MEDICARE, SELFPAY ==
--- NOTE | ~2024-12-29 | XR_ITS ---
XR lumbar spine 2-3V Indication: S32.030A - Wedge compression fracture of third lumbar krystian... Comparison: None Findings: Moderate loss of vertebral height throughout. Grade 1 anterolisthesis of L4 on L5. Remote superior endplate fracture of L2, no acute fracture identified. Moderate to severe loss of disc height throughout. Soft tissues unremarkable Impression: No acute abnormality. Reviewed, dictated and finalized at location P. Impression: No acute abnormality.
== END 2024-12-29 09:05 | disposition home or self-care (01) ==
PROVIDERS: PCP Internal Medicine; Visit Provider Nurse Practitioner Adult Health
DX: S32.030A Wedge compression fracture of third lumbar vertebra, initial encounter for closed fracture (principal); X58.XXXA Exposure to other specified factors, initial encounter
CPT/HCPCS: 72100

== ENCOUNTER 2025-02-11 09:43 | Outpatient (CLI) | payer MEDICARE, SELFPAY ==
--- NOTE | ~2025-02-11 | XR_ITS ---
XR lumbar spine 2-3V Indication: S32.030A - Wedge compression fracture of third lumbar krystian... Comparison: None Findings: There is a remote superior endplate fracture of L3 with loss of height 40%. No acute fracture identified. Grade 1 anterolisthesis of L5 on S1 with moderate loss of disc height at L5-S1. The disc heights are intact. Soft tissues unremarkable Impression: No acute abnormality. Reviewed, dictated and finalized at location [facility]. [facility] REFEREE Impression: No acute abnormality.
--- NOTE | ~2025-02-11 | MR_ITS ---
EXAM/PROCEDURE: MR lumbar spine wo con HISTORY: S32.030A - Wedge compression fracture of third lumbar krystian... COMPARISON: None available. TECHNIQUE: Noncontrast enhanced multiplanar lumbar spine MRI performed. FINDINGS: Acute to subacute 40% compression fracture of L3 involving the superior endplate with approximately 4 mm of retropulsion of the superior cortex and small left paracentral protrusion of disc material as seen on images 14 and 15 of series 6. No spinal canal stenosis. The inferior portion of L3 is not fractured but is diffusely edematous on T2-weighted sequences. Mild hyperintense T2-weighted changes in the inferior endplate of L2. The disc spaces widened with mild hyperintense T2-weighted changes at L2-3. Levels above and below have degenerative changes involving the disc spaces and posterior elements are otherwise intact. No spinal canal stenosis or discrete disc protrusion present. The conus tapers normally at L1. IMPRESSION: 40% compression fracture of L3 involving the superior vertebral body with mild retropulsion and small disc protrusion. Diffusely edematous changes suggest acute on subacute or subacute fracture. Edematous appearing changes in the L2-3 disc, as well as minimal edematous changes in the inferior endplate of L2 noted. If there is clinical concern for discitis, correlation with C-reactive protein and white count as well as follow-up surveillance imaging recommended. Reviewed, dictated and finalized at location A. N MAN IMPRESSION: 40% compression fracture of L3 involving the superior vertebral body with mild retropulsion and small disc protrusion. Diffusely edematous changes suggest acu te on subacute or subacute fracture. Edematous appearing changes in the L2-3 di sc, as well as minimal edematous changes in the inferior endplate of L2 noted. If there is clinical concern for discitis, correlation with C-reactive protein and white count as well as follow-up surveillance imaging recommended.
== END 2025-02-11 09:44 | disposition home or self-care (01) ==
LOC: GOSHIMG 09:43
PROVIDERS: PCP Nurse Practitioner Adult Health; Visit Provider Nurse Practitioner Adult Health
DX: S32.030A Wedge compression fracture of third lumbar vertebra, initial encounter for closed fracture (principal); M51.26 Other intervertebral disc displacement, lumbar region; X58.XXXA Exposure to other specified factors, initial encounter
CPT/HCPCS: 72100; 72148

== ENCOUNTER 2025-03-29 13:58 | Outpatient (CLI) | payer MEDICARE, SELFPAY ==
--- NOTE | ~2025-03-29 | MR_ITS ---
EXAMINATION: MR lumbar spine wo/w con DATE: 03/29/2025 16:02 INDICATION: Wedge compression fracture of third lumbar vertebra. TECHNIQUE: Magnetic resonance imaging (MRI) of the lumbar spine was performed without and with 10 mL MultiHance intravenous contrast. COMPARISON: Lumbar spine MRI 02/11/2025 FINDINGS: There is 7 degrees levocurvature of lumbar spine. There is 3 mm anterolisthesis of L4 on L5. There is a burst fracture of L2 with 3/5 loss of height, edema-like marrow signal intensity, and retropulsion of bone 2 mm into central spinal canal. There is mildly decreased disc height at T12-L1, m oderately decreased disc height at L1-L2, mildly decreased disc height at L2-L3, L3-L4, and L4-L5. 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 The distal spinal cord signal intensity is normal. The conus medullaris is at T11- T12. The following disc levels are specifically discussed: L1-L2: The disc is bulging and has an annular fissure. 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 There is mild bilateral neural foraminal stenosis. There is mild central canal stenosis. L2-L3: The disc is bulging. There is moderate bilateral facet joint osteoarthritis. There is mild bilateral neural foraminal stenosis. There is mild central canal stenosis. L3-L4: The disc is bulging. There is severe bilateral facet joint osteoarthritis. There is mild bilateral neural foraminal stenosis. There is mild central canal stenosis. L4-L5: The disc does not extend beyond the endplate margin. There is severe bilateral facet joint osteoarthritis. There is mild bilateral neural foraminal stenosis. There is no central canal stenosis. L5-S1: The disc does not extend beyond the endplate margin. There is mild bilateral facet joint hypertrophy. There is no neural foraminal stenosis. There is no central canal stenosis. IMPRESSION: 1. L2 burst fracture, slightly worsened from 02/11/2025. 2. Moderate lumbar spondylosis. Reviewed, dictated and finalized at location E. L [facility]
== END 2025-03-29 13:59 | disposition home or self-care (01) ==
PROVIDERS: PCP Nurse Practitioner; Visit Provider Nurse Practitioner Adult Health
DX: S32.021G Stable burst fracture of second lumbar vertebra, subsequent encounter for fracture with delayed healing (principal); X58.XXXD Exposure to other specified factors, subsequent encounter; M47.816 Spondylosis without myelopathy or radiculopathy, lumbar region
CPT/HCPCS: 72158; A9577